=== PATIENT | male | born 1935 | race Caucasian/White ===

== ENCOUNTER 2018-10-25 09:23 | Inpatient (IN) | payer OTHER ==
[~2018-10-25] VITALS: Ht 172.7 cm; Wt 48.1 kg
[2018-10-25] MEDS ORDERED: AZILECT1 MG PO (09:37)
[2018-10-25 09:45] VITALS: BP 114/60
[2018-10-25 10:00] VITALS: BP 120/62
[2018-10-25 10:13] LABS: BASOPHILS 0.2 % (0-2); EOSINOPHILS 0.2 % (0-7); HEMATOCRIT 30.4 % (42.0-54.0); HEMOGLOBIN 9.9 g/dL (13.5-17.5); MCH 29.1 pg (26.0-34.0); MCHC 32.6 g/dL (31.0-37.0); MCV 89.4 fL (80.0-100.0); MEAN PLATELET VOLUME 9.2 fL (7.4-10.4); MONOCYTES 10.2 % (2-11); NEUTROPHILS 71.4 % (40-80); PLATELET COUNT 143 10x3/uL (130-400); RDW 14.5 % (11.5-14.5); WBC 5.1 10x3/uL (4.8-10.8)
[2018-10-25 10:31] LABS: ALBUMIN 2.6 g/dL (3.4-5.0); ALKALINE PHOSPHATASE 63 U/L (46-116); ALT (SGPT) 8 U/L (10-68); APPEARANCE CLEAR (CLEAR); BACTERIA FEW /hpf (NONE SEEN); BILIRUBIN NEGATIVE (NEGATIVE); BILIRUBIN - TOTAL 0.68 mg/dL (0.2-1.3); CALC OSMOLALITY 283 mosm/kg (275-300); CALCIUM 8.8 mg/dL (8.5-10.1); CARBON DIOXIDE 31.3 mmol/L (21.0-32.0); CHLORIDE - SERUM 105 mmol/L (98-107); COLOR DK YELLOW (YELLOW); CREATININE - SERUM 0.9 mg/dL (0.6-1.3); EPITHELIAL CELLS RARE /hpf (0-5); GLUCOSE 99 mg/dL (74-106); GLUCOSE NEGATIVE (NEGATIVE); KETONE SMALL mg/dL (NEGATIVE); MUCUS <1+ /lpf (NONE SEEN); NITRITE NEGATIVE (NEGATIVE); PROTEIN NEGATIVE (NEGATIVE); PROTEIN - SERUM 7.4 g/dL (6.4-8.2); RED CELLS - URINE OCC /hpf (0-5); SODIUM 142 mmol/L (136-145); SPECIFIC GRAVITY 1.015 (1.005-1.020); UREA NITROGEN 14 mg/dL (7-18); WHITE CELLS - URINE NSEEN /hpf (0-5); eGFR NON AFRICAN AMERICAN 85 mL/min (90-120)
--- NOTE | 2018-10-25 10:38 | NUR ---
PATIENT PRESENTS VIA [facility] SECONDARY TO FALL THIS MORNING AROUND 1 TO 2 AM - PT REPORTS RIGHT HIP PAIN - NO DEFORMITY NOTED ON ASSESSMENT. PT EX REPORTS PATIENT HAS HAD AN UNINTENTIONAL APPROX 10 LB WEIGHT LOSS OVER THE LAST MONTH - WITH INCREASING WEAKNESS AND HAS HAD "AT LEAST TWO OR THREE FALLS" NOT COUNTING THIS ONE. SHE REQUEST INFORMATION REGARDING HOME HEALTH OR CAREGIVING SERVICES - UNLOADER[employer]ANKIE SPOKE WITH PATIENT AND HIS EX REGARDING [employer] SERVICES. PT REMAINED ON THE FLOOR FOR APPROX 8 HOURS AFTER THIS FALL AND WAS UNABLE TO SUMMON HELP OR GET UP FROM FLOOR INDEPENDENTLY.
[2018-10-25 10:42] LABS: CKMB 0.6 U/L (0.0-3.6); CREATINE KINASE 103 UL (21-232)
[2018-10-25 10:44] LABS: TROPONIN-I < 0.017 ng/mL (0.000-0.060)
[2018-10-25 11:00] VITALS: BP 116/63
--- NOTE | 2018-10-25 11:49 | NUR ---
Admission order received at 1123, spoke to clay house worker, Connie @ 1124. Room 2219 given at 1126.
[2018-10-25 11:50] VITALS: BP 109/62
[2018-10-25 12:34] VITALS: BMI 16.1
--- NOTE | 2018-10-25 13:10 | MORECARE ---
CASE MANAGEMENT DISCHARGE SUMMARY PATIENT: DON MARQUEZ UNIT: [id number] ADM DATE: 10/25/18 AGE: 83 : 35 SEX: M ROOM/BED: D.2219 AUTHOR: MAYI ARELLANO PHYSICIAN: REFERRING PHYSICIAN: RACHID ABRAHAM MD DATE OF SERVICE: 10/25/18 Discharge Plan Patient Name: DON MARQUEZ [facility] [facility] 1935 Planned Disposition: Inpatient Rehab Facility Anticipated Discharge Date: 10/28/18 Discharge Date: Expected LOS: 3 Initial Reviewer: [email or web address] Initial Review Date: 10/25/2018 Generated: 10/25/18 2:09 pm DCPIA - Discharge Planning Initial Assessment Updated by [email or web address]: Gina Lacy on 10/25/18 1:08 pm * Is the patient Alert and Oriented? Yes * How many steps to enter\exit or inside your home? One * PCP Dr. Arpit Scott * Pharmacy [facility] * Preadmission Environment Home Alone * ADLs Partial Dependent * Partial ADLs (Assistance needed) Ambulation Bathing Dressing Transfers * Equipment Cane Rolling Walker * Other Equipment the walker and quad cane is borrowed equipment. * List name and contact numbers for known caregivers / representatives who currently or will assist patient after discharge: Jimena Marquez - ex - [phone] Monica Granados - daughter - * Verbal permission to speak to the caregivers and representatives has been obtained from the patient. Yes * Community resources currently utilized None * Additional services required to return to the preadmission environment? Yes * Can the patient safely return to the preadmission environment? No * Has this patient been hospitalized within the prior 30 days at any hospital? No Patient Name: DON MARQUEZ Page [id number] at 1310 All edits/amendments must be made on the electronic document DICTATION DATE: 10/25/18 1309 BOARDING HOUSE MANAGER: RAHUL 10/25/18 1309 RPT#: [id number] DC DATE: STATUS: ADM IN [facility] [address] [place] [address] END OF REPORT
--- NOTE | 2018-10-25 13:17 | MORECARE ---
CASE MANAGEMENT DISCHARGE SUMMARY PATIENT: DON MARQUEZ UNIT: [id number] ADM DATE: 10/25/18 AGE: 83 : 35 SEX: M ROOM/BED: D.2219 AUTHOR: MAYI ARELLANO PHYSICIAN: REFERRING PHYSICIAN: RACHID ABRAHAM MD DATE OF SERVICE: 10/25/18 Discharge Plan Patient Name: DON MARQUEZ Facility: [facility]:[place] : 1935 Planned Disposition: Inpatient Rehab Facility Anticipated Discharge Date: 10/28/18 Discharge Date: Expected LOS: 3 Initial Reviewer: [email or web address] Initial Review Date: 10/25/2018 Generated: 10/25/18 2:17 pm Comments DCP- Discharge Planning Updated by [email or web address]: Gina Lacy on 10/25/18 12:[address] Patient Name: DON MARQUEZ Admission Status: ER Accout number: [id number] Admission Date: 10-25-2018 : 1935 Admission Diagnosis: Attending: RACHID ABRAHAM Current LOS: 1 Anticipated DC Date: 10-28-2018 Planned Disposition: Inpatient Rehab Facility Primary Insurance: [employer] Discharge Planning Comments: DC PLAN: Rehab vs home health. ANTICIPATED DC NEEDS: KAYLEE signed for [facility] in the ER. CM met with patient and his ex , Jimena Marquez to complete initial dc planning assessment. CM educated them on the CM role and verbal consent given by patient's ex to complete assessment. CM verified patient's address, phone number, and emergency contact phone numbers. Patient lives at home alone. He was found down on the floor for an unknown amount of time. Jimena reports that the patient is very upset he is being admitted. She does not feel he is safe to be home alone. Their daughter Monica Granados will be here next week to assist in his care. Jimena had questions regarding home health and sitter services. Explained both and kaylee signed for [facility]. Jimena is not sure at discharge if the patient will agree to home health or rehab. She feels he will need rehab and is hopeful he will agree to it. She also had questions regarding how to get guardianship (so their daughter could do this when she gets here). Informed her that she would have to go through the courts to get guardianship. Referred her to [employer] for additional information. If the patient refuses services at me Jimena reports she will transport him home. Cm will make arrangements once plan for the hip fracture is know. Not sure at this time if surgery will be required per ER MD. CM will continue to follow and will assist as needed with dc plans/needs. China Painter: Gina Lacy RN, [facility] DCPIA - Discharge Planning Initial Assessment Updated by [email or web address]: Gina Lacy on 10/25/18 1:08 pm * Is the patient Alert and Oriented? Yes * How many steps to enter\exit or inside your home? One * PCP Dr. Arpit Scott * Pharmacy [facility] near [facility] * Preadmission Environment Home Alone * ADLs Partial Dependent * Partial ADLs (Assistance needed) Ambulation Bathing Dressing Transfers * Equipment Cane Rolling Walker * Other Equipment the walker and quad cane is borrowed equipment. * List name and contact numbers for known caregivers / representatives who currently or will assist patient after discharge: Jimena Marquez - ex - [phone] Monica Granados - daughter - * Verbal permission to speak to the caregivers and representatives has been obtained from the patient. Yes * Community resources currently utilized None * Additional services required to return to the preadmission environment? Yes * Can the patient safely return to the preadmission environment? No * Has this patient been hospitalized within the prior 30 days at any hospital? No Last DP export: 10/25/18 12:10 p Patient Name: DON MARQUEZ Page [id number] at 1317 All edits/amendments must be made on the electronic document DICTATION DATE: 10/25/187 EMT/DISPATCHER: RAHUL 10/25/187 RPT#: [id number] DC DATE: STATUS: ADM IN [facility] [address] [place] [address] END OF REPORT
[2018-10-25 16:23] LABS: CKMB 0.7 U/L (0.0-3.6); CREATINE KINASE 132 UL (21-232)
[2018-10-25 16:25] LABS: TROPONIN-I < 0.017 ng/mL (0.000-0.060)
--- NOTE | 2018-10-25 18:45 | NUR ---
PATIENT IN BED WITH NO COMPLAINTS. IV OUT. PATIENT REMOVED EARLIER WITH CATH TIP INTACT. CALL LIGHT WITHIN REACH.
--- NOTE | 2018-10-25 19:00 | NUR ---
ASSESSMENT PER FLOW SHEET. PT IS WITHOUT DISTRESS.FALL PREVENTION INITIATED WITH CAMRYN MAT.DOOR OPEN TO MONITOR.
[2018-10-25 22:24] VITALS: BP 114/74
[2018-10-25 22:46] LABS: CKMB 0.7 U/L (0.0-3.6); CREATINE KINASE 111 UL (21-232); TROPONIN-I < 0.017 ng/mL (0.000-0.060)
[2018-10-26 03:48] VITALS: BP 112/63
--- NOTE | 2018-10-26 06:03 | NUR ---
HAS SLEPT VERY LITTLE DURING NIGHT. PT HAS BEEN TRYING TO GET OUT OF BED. DOOR HAS BEEN OPEN TO MONITOR. PT IS WITHOUT CHANGE. CONT PLAN OF CARE
[2018-10-26 06:49] VITALS: BP 125/66
[2018-10-26 07:31] LABS: BASOPHILS 0.4 % (0-2); EOSINOPHILS 1.6 % (0-7); HEMATOCRIT 34.6 % (42.0-54.0); HEMOGLOBIN 10.9 g/dL (13.5-17.5); IMMATURE GRANULOCYTES 0.2 % (0-5); LYMPHOCYTES 18.4 % (15-50); MCH 29.4 pg (26.0-34.0); MCHC 31.5 g/dL (31.0-37.0); MONOCYTES 8.4 % (2-11); PLATELET COUNT 157 10x3/uL (130-400); RBC 3.71 10x6/uL (4.20-6.10); RDW 14.5 % (11.5-14.5); WBC 5.1 10x3/uL (4.8-10.8)
[2018-10-26 07:33] LABS: MCV 93.3 fL (80.0-100.0)
[2018-10-26 07:43] LABS: CALC OSMOLALITY 279 mosm/kg (275-300); CALCIUM 8.4 mg/dL (8.5-10.1); CARBON DIOXIDE 25.5 mmol/L (21.0-32.0); CHLORIDE - SERUM 106 mmol/L (98-107); CREATININE - SERUM 0.7 mg/dL (0.6-1.3); GLUCOSE 92 mg/dL (74-106); MAGNESIUM - SERUM 1.8 mg/dL (1.8-2.4); POTASSIUM - SERUM 4.1 mmol/L (3.5-5.1); SODIUM 141 mmol/L (136-145); UREA NITROGEN 11 mg/dL (7-18); eGFR NON AFRICAN AMERICAN > 90 mL/min (90-120)
--- NOTE | 2018-10-26 09:00 | NUR ---
PATIENT IS VERY CONFUSED. CLIMBING OUT OF BED. BED ALARM ON. CALL LIGHT WITHIN REACH. PULLED OFF TELEMETRY X2 SINCE SHIFT STARTED. THIS NURSE CALLED WORKERS [employer] WHO STATED THAT PATIENT HAS BEEN RUNNING SINUE RYTHUM WHEN TELELMTRY ON. KEPT TELEMTRY OFF AND TURNED IN UNIT TO TECH. DAUGHTER WHO LIVES IN [place] CALLED AND UPDATED AFTER PATIENT STATED IT WAS OK TO TALK TO DAUGHTER
[2018-10-26 10:17] VITALS: BP 105/54
[2018-10-26 13:11] VITALS: BP 118/63
[2018-10-26 13:28] LABS: % SATURATION 18 % (15-55); IRON 27 ug/dl (35-150); TOTAL IRON BIND CAPACITY 150 ug/dl (260-445); UNSAT IRON BIND CAPACITY 123 ug/dl (150-375)
[2018-10-26 13:43] VITALS: Ht 172.7 cm; Wt 48.1 kg
--- NOTE | 2018-10-26 14:54 | NUR ---
WOUND CARE CONSULT : REASON FOR CONSULT: DECREASED MOBILITY -TURN/REPOSITION PT EVERYY 2 HOURS -IF UP IN CHAIR SHIFT POSITIONS HOURLY -CALMOSEPTINE CREAM FOR ANY REDNESS RELATED TO INCONTINENCE -BRIDGE HEELS WHILE IN BED
--- NOTE | 2018-10-26 15:43 | MORECARE ---
CASE MANAGEMENT DISCHARGE SUMMARY PATIENT: DON MARQUEZ UNIT: [id number] ADM DATE: 10/25/18 AGE: 83 : 35 SEX: M ROOM/BED: D.2219 AUTHOR: MAYI ARELLANO PHYSICIAN: REFERRING PHYSICIAN: RACHID ABRAHAM MD DATE OF SERVICE: 10/26/18 Discharge Plan Patient Name: DON MARQUEZ Facility: [facility]:[place] : 1935 Planned Disposition: Inpatient Rehab Facility Anticipated Discharge Date: 10/28/18 Discharge Date: Expected LOS: 3 Initial Reviewer: [email or web address] Initial Review Date: 10/25/2018 Generated: 10/26/18 4:43 pm DCP- Discharge Planning Updated by [email or web address]: Jillian Lovett on 10/26/18 2:[address] met with ex Jimena and met with patient, Jimena stated that she and her daughter are the POA. The patient is alert but not oriented to anything. He is pleasant but cannot answer any questions appropriately. Psych consult ordered will wait to see his recommendations, CM to follow and assist as needed DCP- Discharge Planning Updated by [email or web address]: Gina Lacy on 10/25/18 12:[address] Patient Name: DON MARQUEZ Admission Status: ER Accout number: [id number] Admission Date: 10-25-2018 : 1935 Admission Diagnosis: Attending: RACHID ABRAHAM Current LOS: 1 Anticipated DC Date: 10-28-2018 Planned Disposition: Inpatient Rehab Facility Primary Insurance: [employer] Discharge Planning Comments: DC PLAN: Rehab vs home health. ANTICIPATED DC NEEDS: KAYLEE signed for [facility] in the ER. CM met with patient and his ex , Jimena Marquez to complete initial dc planning assessment. CM educated them on the CM role and verbal consent given by patient's ex to complete assessment. CM verified patient's address, phone number, and emergency contact phone numbers. Patient lives at home alone. He was found down on the floor for an unknown amount of time. Jimena reports that the patient is very upset he is being admitted. She does not feel he is safe to be home alone. Their daughter Monica Granados will be here next week to assist in his care. Jimena had questions regarding home health and sitter services. Explained both and kaylee signed for [facility] . Jimena is not sure at discharge if the patient will agree to home health or rehab. She feels he will need rehab and is hopeful he will agree to it. She also had questions regarding how to get guardianship (so their daughter could do this when she gets here). Informed her that she would have to go through the courts to get guardianship. Referred her to [employer] for additional information. If the patient refuses services at dc Jimena reports she will transport him home. Cm will make arrangements once plan for the hip fracture is know. Not sure at this time if surgery will be required per ER MD. CM will continue to follow and will assist as needed with dc plans/needs. Water Resources Technical Officer: Gina Lacy RN, [facility] DCPIA - Discharge Planning Initial Assessment Updated by [email or web address]: Gina Lacy on 10/25/18 1:08 pm * Is the patient Alert and Oriented? Yes * How many steps to enter\exit or inside your home? One * PCP Dr. Arpit Scott * Pharmacy [facility] near [facility] * Preadmission Environment Home Alone * ADLs Partial Dependent * Partial ADLs (Assistance needed) Ambulation Bathing Dressing Transfers * Equipment Cane Rolling Walker * Other Equipment the walker and quad cane is borrowed equipment. * List name and contact numbers for known caregivers / representatives who currently or will assist patient after discharge: Jimena Marquez - ex - [phone] Monica Granados - daughter - * Verbal permission to speak to the caregivers and representatives has been obtained from the patient. Yes * Community resources currently utilized None * Additional services required to return to the preadmission environment? Yes * Can the patient safely return to the preadmission environment? No * Has this patient been hospitalized within the prior 30 days at any hospital? No Last DP export: 10/25/18 12:17 p Patient Name: DON MARQUEZ Page [id number] at 1543 All edits/amendments must be made on the electronic document DICTATION DATE: 10/26/18 1546 AD OPERATIONS SPECIALIST: RAHUL 10/26/18 1541 RPT#: [id number] ID DATE: STATUS: ADM IN [facility] [address] [place] [address] END OF REPORT
--- NOTE | 2018-10-26 20:22 | NUR ---
AWAKE,ALERT WITH CONFUSION NOTED. ORIENTED TO SELF ONLY. RESP UNLABORED. NO DISTRESS NOTED. PATIENT REMAINS IN CAMRYN BED FOR SAFTEY.
[2018-10-26 21:49] VITALS: BP 147/78
--- NOTE | 2018-10-27 00:17 | NUR ---
SLEEPING NOW,WITHOUT DISTRESS.DOOR OPEN TO MONITOR
[2018-10-27 02:49] VITALS: BP 144/72
[2018-10-27 04:47] LABS: BASOPHILS 0.6 % (0-2); EOSINOPHILS 1.7 % (0-7); HEMATOCRIT 33.9 % (42.0-54.0); HEMOGLOBIN 11.4 g/dL (13.5-17.5); IMMATURE GRANULOCYTES 0.2 % (0-5); LYMPHOCYTES 17.3 % (15-50); MCH 29.5 pg (26.0-34.0); MCHC 33.6 g/dL (31.0-37.0); MEAN PLATELET VOLUME 9.7 fL (7.4-10.4); MONOCYTES 8.7 % (2-11); NEUTROPHILS 71.5 % (40-80); RBC 3.87 10x6/uL (4.20-6.10); WBC 5.4 10x3/uL (4.8-10.8)
[2018-10-27 04:58] LABS: MCV 87.6 fL (80.0-100.0); PLATELET COUNT 191 10x3/uL (130-400)
[2018-10-27 05:18] LABS: CALC OSMOLALITY 277 mosm/kg (275-300); CALCIUM 8.9 mg/dL (8.5-10.1); CARBON DIOXIDE 27.5 mmol/L (21.0-32.0); CHLORIDE - SERUM 103 mmol/L (98-107); CREATININE - SERUM 0.8 mg/dL (0.6-1.3); GLUCOSE 91 mg/dL (74-106); PHOSPHOROUS 3.2 mg/dL (2.5-4.9); POTASSIUM - SERUM 4.1 mmol/L (3.5-5.1); SODIUM 140 mmol/L (136-145); UREA NITROGEN 10 mg/dL (7-18); eGFR NON AFRICAN AMERICAN > 90 mL/min (90-120)
[2018-10-27 06:29] VITALS: BP 118/70
--- NOTE | 2018-10-27 07:55 | NUR ---
PT RESTING IN BED. AROUSED BY VERBAL STIMULI. NO S/S OF ACUTE DISTRESS. CL IN PLACE.
[2018-10-27 10:26] VITALS: BP 125/63
--- NOTE | 2018-10-27 12:51 | NUR ---
Calorie Count for Wednesday 14: kcal protein Breakfasat 160 10 Lunch 250 16 Dinner 350 20 Total 760 kcal 46 gm protien RDN following.
--- NOTE | 2018-10-27 13:07 | MORECARE ---
CASE MANAGEMENT DISCHARGE SUMMARY PATIENT: DON MARQUEZ UNIT: [id number] ADM DATE: 10/25/18 AGE: 83 : 35 SEX: M ROOM/BED: D.2219 AUTHOR: MAYI ARELLANO PHYSICIAN: REFERRING PHYSICIAN: RACHID ABRAHAM MD DATE OF SERVICE: 10/27/18 Discharge Plan Patient Name: DON MARQUEZ Facility: [facility]:[place] : 1935 Planned Disposition: Inpatient Rehab Facility Anticipated Discharge Date: 10/28/18 Discharge Date: Expected LOS: 3 Initial Reviewer: [email or web address] Initial Review Date: 10/25/2018 Generated: 10/27/18 2:07 pm Comments DCP- Discharge Planning Updated by [email or web address]: Jillian Lovett on 10/27/18 11:[address] spoke with ex today, she was up here visiting him about and a facility. I [place] broch[place]. She stated that she is going to talk with their daughter and go visit them and get back with me. CM will continue to follow and assist with dc planning DCP- Discharge Planning Updated by [email or web address]: Jillian Lovett on 10/26/18 2:[address] met with ex Jimena and met with patient, Jimena stated that she and her daughter are the POA. The patient is alert but not oriented to anything. He is pleasant but cannot answer any questions appropriately. Psych consult ordered will wait to see his recommendations, CM to follow and assist as needed DCP- Discharge Planning Updated by [email or web address]: Gina Lacy on 10/25/18 12:[address] Patient Name: DON MARQUEZ Admission Status: ER Accout number: [id number] Admission Date: 10-25-2018 : 1935 Admission Diagnosis: Attending: RACHID ABRAHAM Current LOS: 1 Anticipated DC Date: 10-28-2018 Planned Disposition: Inpatient Rehab Facility Primary Insurance: [employer] Discharge Planning Comments: DC PLAN: Rehab vs home health. ANTICIPATED DC NEEDS: KAYLEE signed for [facility] in the ER. CM met with patient and his ex , Jimena Marquez to complete initial dc planning assessment. CM educated them on the CM role and verbal consent given by patient's ex to complete assessment. CM verified patient's address, phone number, and emergency contact phone numbers. Patient lives at home alone. He was found down on the floor for an unknown amount of time. Jimena reports that the patient is very upset he is being admitted. She does not feel he is safe to be home alone. Their daughter Monica Granados will be here next week to assist in his care. Jimena had questions regarding home health and sitter services. Explained both and kaylee signed for [facility]. Jimena is not sure at discharge if the patient will agree to home health or rehab. She feels he will need rehab and is hopeful he will agree to it. She also had questions regarding how to get guardianship (so their daughter could do this when she gets here). Informed her that she would have to go through the courts to get guardianship. Referred her to [employer] for additional information. If the patient refuses services at dc Jimena reports she will transport him home. Cm will make arrangements once plan for the hip fracture is know. Not sure at this time if surgery will be required per ER MD. CM will continue to follow and will assist as needed with dc plans/needs. Snuff Maker: Gina Lacy RN, [facility] DCPIA - Discharge Planning Initial Assessment Updated by [email or web address]: Gina Lacy on 10/25/18 1:08 pm * Is the patient Alert and Oriented? Yes * How many steps to enter\exit or inside your home? One * PCP Dr. Arpit Scott * Pharmacy [facility] near [facility] * Preadmission Environment Home Alone * ADLs Partial Dependent * Partial ADLs (Assistance needed) Ambulation Bathing Dressing Transfers * Equipment Cane Rolling Walker * Other Equipment the walker and quad cane is borrowed equipment. * List name and contact numbers for known caregivers / representatives who currently or will assist patient after discharge: Jimena Marquez - ex - [phone] Monica Granados - daughter - * Verbal permission to speak to the caregivers and representatives has been obtained from the patient. Yes * Community resources currently utilized None * Additional services required to return to the preadmission environment? Yes * Can the patient safely return to the preadmission environment? No * Has this patient been hospitalized within the prior 30 days at any hospital? No Last DP export: 10/26/18 2:43 p Patient Name: DON MARQUEZ Page [id number] at 1307 All edits/amendments must be made on the electronic document DICTATION DATE: 10/27/18 1307 SENIOR QUALITY CONTROL INSPECTOR: RAHUL 10/27/18 1307 RPT#: [id number] DC DATE: STATUS: ADM IN [facility] [address] [place] [address] END OF REPORT
--- NOTE | 2018-10-27 13:17 | CN ---
PATIENT NAME:DON MARQUEZ MEDICAL RECORD: [id number] : [birth year] LOCATION:D.MS Amin2219 ADMIT DATE: 10/25/18 ACCOUNT: [id number] CONSULTING PHYSICIAN: SRI LOPEZ MD REFERRING PHYSICIAN: RACHID ABRAHAM MD DATE OF CONSULTATION: 10/26/2018 IDENTIFYING DATA: The patient is 83 years old and he is admitted to the hospital secondary to a hip fracture. CHIEF COMPLAINT: None. HISTORY OF PRESENT ILLNESS: The patient is a very nice man who unfortunately is significantly and seriously impaired. He lives alone in [place]. Apparently, he was found on the floor. He cannot give much history. It is really not known how long he has been there. He looks emaciated. He has a number of medical problems and is confused. He denies that he would seek to harm himself or others. He denies psychotic symptoms. MENTAL STATUS EXAMINATION: The patient is awake; alert; and oriented to person, place, and minimally to time and situation. His mood is euthymic. His affect is generally appropriate. Thought processes are disorganized. His memory, concentration, and abstraction abilities are impaired. He denies that he would seek to harm himself or others along with psychotic symptoms. ASSESSMENT: Parkinson's related dementia. PLAN: The patient is suffering from a moderately advanced dementia and is inappropriate to live alone. He does not abuse drugs or alcohol, but he is too impaired to be living independently. Helping him transition from home into an environment that is the least restrictive to meet his needs is certainly something that we do on the behavioral unit. Unfortunately, the need for supervision and placement is not admission criteria. There is no evidence of aggressive psychotic behavior. There is no evidence of acute danger to himself other than the fact that he needs supervision, which is in and of itself an exclusionary criteria for behavioral hospitalization. I am not allowed to hospitalize somebody for the purposes of placement or for diagnostic procedures or purposes. It is my opinion that he is not fully competent to make reasonable informed consent decisions about himself or his state and that he is in need of placement. I see no reason for significant pharmacologic interventions, but would recommend starting him on Aricept at a dose of 10 mg at bedtime. In fact, I will do so now. TRANSINT:[id number] Voice Confirmation ID: [id number] DOCUMENT ID: [id number] SRI LOPEZ MD at 1317 CC: [id number] DICTATION DATE: 10/26/18 1510 HORSE TRAINER: 10/26/18 1618 ADM IN [place] [id number] [place] [id number]
[2018-10-27 18:35] VITALS: BP 131/85
--- NOTE | 2018-10-27 18:49 | NUR ---
PT RESTING IN BED. NO S/S OF ACUTE DISTRESS. CL IN PLACE.
--- NOTE | 2018-10-27 19:00 | NUR ---
REPORT RECEICED AND CARE OF PT ASSUMED. PT LYING IN LOW HAN'S POSITION IN ENCLOSURE BED. HE HAS TAKEN GOWN OFF AND IS LAYING NAKED UNCOVERED. NO IV SITED. WILL MONITOR FOR NEEDS.
--- NOTE | 2018-10-27 20:39 | NUR ---
HS MEDICATIONS GIVEN WITH APPLESAUCE. PT RE-POSITIONED, GAVE WATER, AND COVERED UP FOR COMFORT. PT REMAINS IN ENCLOSURE BED FOR SAFETY.
[2018-10-27 20:42] VITALS: BP 137/62
--- NOTE | 2018-10-28 00:03 | NUR ---
ALL BEDDING AND PADS CHANGED DUE TO INCONTINENCE. POSITIONED FOR COMFORT AND GAVE PUDDING SNACK.
[2018-10-28 05:12] LABS: BASOPHILS 0.2 % (0-2); EOSINOPHILS 0.3 % (0-7); HEMATOCRIT 35.7 % (42.0-54.0); LYMPHOCYTES 13.7 % (15-50); MCH 29.6 pg (26.0-34.0); MCHC 33.6 g/dL (31.0-37.0); MCV 87.9 fL (80.0-100.0); MEAN PLATELET VOLUME 9.5 fL (7.4-10.4); MONOCYTES 8.1 % (2-11); NEUTROPHILS 77.7 % (40-80); PLATELET COUNT 218 10x3/uL (130-400); RBC 4.06 10x6/uL (4.20-6.10); RDW 13.9 % (11.5-14.5); WBC 5.9 10x3/uL (4.8-10.8)
[2018-10-28 05:30] LABS: CALC OSMOLALITY 273 mosm/kg (275-300); CARBON DIOXIDE 26.8 mmol/L (21.0-32.0); CHLORIDE - SERUM 102 mmol/L (98-107); CREATININE - SERUM 0.8 mg/dL (0.6-1.3); GLUCOSE 88 mg/dL (74-106); MAGNESIUM - SERUM 1.9 mg/dL (1.8-2.4); PHOSPHOROUS 3.2 mg/dL (2.5-4.9); POTASSIUM - SERUM 4.1 mmol/L (3.5-5.1); SODIUM 138 mmol/L (136-145); UREA NITROGEN 11 mg/dL (7-18); eGFR NON AFRICAN AMERICAN > 90 mL/min (90-120)
[2018-10-28 07:30] VITALS: BP 110/63
[2018-10-28 11:30] VITALS: BP 116/55
--- NOTE | 2018-10-28 13:00 | MORECARE ---
CASE MANAGEMENT DISCHARGE SUMMARY PATIENT: DON MARQUEZ UNIT: [id number] ADM DATE: 10/25/18 AGE: 83 : 35 SEX: M ROOM/BED: D.2219 AUTHOR: MAYI ARELLANO PHYSICIAN: REFERRING PHYSICIAN: RACHID ABRAHAM MD DATE OF SERVICE: 10/28/18 Discharge Plan Patient Name: DON MARQUEZ Facility: [facility]:[place] : 1935 Planned Disposition: Inpatient Rehab Facility Anticipated Discharge Date: 10/28/18 Discharge Date: Expected LOS: 3 Initial Reviewer: [email or web address] Initial Review Date: 10/25/2018 Generated: 10/28/18 1:59 pm Comments DCP- Discharge Planning Updated by [id number]: Jillian Lovett on 10/27/18 11:[address] spoke with ex today, she was up here visiting him about and a facility. [place] She stated that she is going to talk with their daughter and go visit them and get back with me. CM will continue to follow and assist with dc planning DCP- Discharge Planning Updated by [email or web address]: Jillian Lovett on 10/26/18 2:[address] met with ex Jimena and met with patient, Jimena stated that she and her daughter are the POA. The patient is alert but not oriented to anything. He is pleasant but cannot answer any questions appropriately. Psych consult ordered will wait to see his recommendations, CM to follow and assist as needed DCP- Discharge Planning Updated by [id number]: Gina Lacy on 10/25/18 12:[address] Patient Name: DON MARQUEZ Admission Status: ER Accout number: [id number] Admission Date: 10-25-2018 : 1935 Admission Diagnosis: Attending: RACHID ABRAHAM Current LOS: 1 Anticipated DC Date: 10-28-2018 Planned Disposition: Inpatient Rehab Facility Primary Insurance: [id number] Discharge Planning Comments: DC PLAN: Rehab vs home health. ANTICIPATED DC NEEDS: KAYLEE signed for [facility] in the ER. CM met with patient and his ex , Jimena Marquez to complete initial dc planning assessment. CM educated them on the CM role and verbal consent given by patient's ex to complete assessment. CM verified patient's address, phone number, and emergency contact phone numbers. Patient lives at home alone. He was found down on the floor for an unknown amount of time. Jimena reports that the patient is very upset he is being admitted. She does not feel he is safe to be home alone. Their daughter Monica Granados will be here next week to assist in his care. Jimena had questions regarding home health and sitter services. Explained both and kaylee signed for [facility]. Jimena is not sure at discharge if the patient will agree to home health or rehab. She feels he will need rehab and is hopeful he will agree to it. She also had questions regarding how to get guardianship (so their daughter could do this when she gets here). Informed her that she would have to go through the courts to get guardianship. Referred her to [employer] for additional information. If the patient refuses services at dc Jimena reports she will transport him home. Cm will make arrangements once plan for the hip fracture is know. Not sure at this time if surgery will be required per ER MD. CM will continue to follow and will assist as needed with dc plans/needs. Fleet Operations Manager: Gina Lacy RN, [facility] DCPIA - Discharge Planning Initial Assessment Updated by [email or web address]: Gina Lacy on 10/25/18 1:08 pm * Is the patient Alert and Oriented? Yes * How many steps to enter\exit or inside your home? One * PCP Dr. Arpit Scott * Pharmacy [facility] near [facility] * Preadmission Environment Home Alone * ADLs Partial Dependent * Partial ADLs (Assistance needed) Ambulation Bathing Dressing Transfers * Equipment Cane Rolling Walker * Other Equipment the walker and quad cane is borrowed equipment. * List name and contact numbers for known caregivers / representatives who currently or will assist patient after discharge: Jimena Marquez - ex - [phone] Monica Granados - daughter - * Verbal permission to speak to the caregivers and representatives has been obtained from the patient. Yes * Community resources currently utilized None * Additional services required to return to the preadmission environment? Yes * Can the patient safely return to the preadmission environment? No * Has this patient been hospitalized within the prior 30 days at any hospital? No External Providers [facility] Next Contact Date: Service Request Date: Service Type: Resolution: Reviewer: Comments: [facility] Contact Date: Service Request Date: Service Type: Resolution: Reviewer: Comments: Last DP export: 10/27/18 12:07 p Patient Name: DON MARQUEZ Page 37002 at 1300 All edits/amendments must be made on the electronic document DICTATION DATE: 10/28/18 125 HYDRAULIC ENGINEER: RAHUL 10/28/18 125 RPT#: [id number] DC DATE: STATUS: ADM IN [facility] [address] [place] [address] END OF REPORT
--- NOTE | 2018-10-28 13:34 | MORECARE ---
CASE MANAGEMENT DISCHARGE SUMMARY PATIENT: DON MARQUEZ UNIT: [id number] ADM DATE: 10/25/18 AGE: 83 : 35 SEX: M ROOM/BED: D.2219 AUTHOR: MAYI ARELLANO PHYSICIAN: REFERRING PHYSICIAN: RACHID CORDOVA MD DATE OF SERVICE: 10/28/18 Discharge Plan Patient Name: DON MARQUEZ [facility] [facility] 1935 Planned Disposition: Inpatient Rehab Facility Anticipated Discharge Date: 10/28/18 Discharge Date: Expected LOS: 3 Initial Reviewer: [email or web address] Initial Review Date: 10/25/2018 Generated: 10/28/18 2:33 pm Comments DCP- Discharge Planning Updated by [email or web address]: Jillian Lovett on 10/28/18 12:[address] Spoke at length with Daughter, she would like a referral to be sent to [facility]. Dr Cordova spoke with family at length about prognosis and plan of care. CM to follow and assist DCP- Discharge Planning Updated by [email or web address]: Jillian Lovett on 10/27/18 11:[address] spoke with ex today, she was up here visiting him about and a facility. I have given her brochures and information about the ones in the [facility] and surrounding area's. She stated that she is going to talk with their daughter and go visit them and get back with me. CM will continue to follow and assist with dc planning DCP- Discharge Planning Updated by [email or web address]: Jillian Lovett on 10/26/18 2:[address] met with ex Jimena and met with patient, Jimena stated that she and her daughter are the POA. The patient is alert but not oriented to anything. He is pleasant but cannot answer any questions appropriately. Psych consult ordered will wait to see his recommendations, CM to follow and assist as needed DCP- Discharge Planning Updated by [id number]: Gina Lacy on 10/25/18 12:[address] Patient Name: DON MARQUEZ Admission Status: ER Accout number: [id number] Admission Date: 10-25-2018 : 1935 Admission Diagnosis: Attending: RACHID CORDOVA Current LOS: 1 Anticipated DC Date: 10-28-2018 Planned Disposition: Inpatient Rehab Facility Primary Insurance: [employer] Discharge Planning Comments: DC PLAN: Rehab vs home health. ANTICIPATED DC NEEDS: KAYLEE signed for [facility] in the ER. CM met with patient and his ex , Jimena Marquez to complete initial dc planning assessment. CM educated them on the CM role and verbal consent given by patient's ex to complete assessment. CM verified patient's address, phone number, and emergency contact phone numbers. Patient lives at home alone. He was found down on the floor for an unknown amount of time. Jimena reports that the patient is very upset he is being admitted. She does not feel he is safe to be home alone. Their daughter Monica Granados will be here next week to assist in his care. Jimena had questions regarding home health and sitter services. Explained both and kaylee signed for [facility]. Jimena is not sure at discharge if the patient will agree to home health or rehab. She feels he will need rehab and is hopeful he will agree to it. She also had questions regarding how to get guardianship (so their daughter could do this when she gets here). Informed her that she would have to go through the courts to get guardianship. Referred her to [employer] for additional information. If the patient refuses services at md Jimena reports she will transport him home. Cm will make arrangements once plan for the hip fracture is know. Not sure at this time if surgery will be required per ER MD. CM will continue to follow and will assist as needed with dc plans/needs. Latex Thread Machine Operator: Gina Lacy RN, [facility] DCPIA - Discharge Planning Initial Assessment Updated by [id number]: Gina Lacy on 10/25/18 1:08 pm * Is the patient Alert and Oriented? Yes * How many steps to enter\exit or inside your home? One * PCP Dr. Arpit Scott * Pharmacy [facility] near [facility] * Preadmission Environment Home Alone * ADLs Partial Dependent * Partial ADLs (Assistance needed) Ambulation Bathing Dressing Transfers * Equipment Cane Rolling Walker * Other Equipment the walker and quad cane is borrowed equipment. * List name and contact numbers for known caregivers / representatives who currently or will assist patient after discharge: Jimena Marquez - ex - [phone] Monica Granados - daughter - * Verbal permission to speak to the caregivers and representatives has been obtained from the patient. Yes * Community resources currently utilized None * Additional services required to return to the preadmission environment? Yes * Can the patient safely return to the preadmission environment? No * Has this patient been hospitalized within the prior 30 days at any hospital? No Last DP export: 10/28/18 12:00 p Patient Name: DON MARQUEZ Page [id number] at 1334 All edits/amendments must be made on the electronic document DICTATION DATE: 10/28/181332 DRY BOSS: RAHUL 10/28/183 RPT#: [id number] DC DATE: STATUS: ADM IN [facility] [address] [place] [address] END OF REPORT
--- NOTE | 2018-10-28 15:44 | MORECARE ---
CASE MANAGEMENT DISCHARGE SUMMARY PATIENT: DON MARQUEZ UNIT: [id number] ADM DATE: 10/25/18 AGE: 83 : 35 SEX: M ROOM/BED: D.2219 AUTHOR: EILEENDOC PHYSICIAN: REFERRING PHYSICIAN: RACHID CORDOVA MD DATE OF SERVICE: 10/28/18 Discharge Plan Patient Name: DON MARQUEZ [facility] [facility] 1935 Planned Disposition: Inpatient Rehab Facility Anticipated Discharge Date: 10/28/18 Discharge Date: Expected LOS: 3 Initial Reviewer: [id number] Initial Review Date: 10/25/2018 Generated: 10/28/18 4:44 pm Comments DCP- Discharge Planning Updated by [email or web address]: Jillian Lovett on 10/28/18 2:[address] I ALSO FAXED DOWN A COPY OF THE PATIENTS CARD TO THE BUSINESS OFFICE AND THEY HAVE UPDATED HIS FACESHEET DCP- Discharge Planning Updated by [email or web address]: Jillian Lovett on 10/28/18 2:[address] [facility], I SPOKE WITH JEFF. DCP- Discharge Planning Updated by [id number]: Jillian Lovett on 10/28/18 12:[address] Spoke at length with Daughter, she would like a referral to be sent to [facility]. Dr Cordova spoke with family at length about prognosis and plan of care. CM to follow and assist DCP- Discharge Planning Updated by [id number]: Jillian Lovett on 10/27/18 11:[address] spoke with ex today, she was up here visiting him about and a facility. I have given her brochures and information about the ones in the [facility] and surrounding area's. She stated that she is going to talk with their daughter and go visit them and get back with me. CM will continue to follow and assist with dc planning DCP- Discharge Planning Updated by [id number]: Jillian Lovett on 10/26/18 2:[address] met with ex Jimena and met with patient, Jimena stated that she and her daughter are the POA. The patient is alert but not oriented to anything. He is pleasant but cannot answer any questions appropriately. Psych consult ordered will wait to see his recommendations, CM to follow and assist as needed DCP- Discharge Planning Updated by [id number]: Gina Lacy on 10/25/18 12:[address] Patient Name: DON MARQUEZ Admission Status: ER Accout number: [id number] Admission Date: 10-25-2018 : 1935 Admission Diagnosis: Attending: RACHID CORDOVA Current LOS: 1 Anticipated DC Date: 10-28-2018 Planned Disposition: Inpatient Rehab Facility Primary Insurance: [employer] Discharge Planning Comments: DC PLAN: Rehab vs home health. ANTICIPATED DC NEEDS: KAYLEE signed for [facility] in the ER. CM met with patient and his ex , Jimena Marquez to complete initial dc planning assessment. CM educated them on the CM role and verbal consent given by patient's ex to complete assessment. CM verified patient's address, phone number, and emergency contact phone numbers. Patient lives at home alone. He was found down on the floor for an unknown amount of time. Jimena reports that the patient is very upset he is being admitted. She does not feel he is safe to be home alone. Their daughter Monica Granados will be here next week to assist in his care. Jimena had questions regarding home health and sitter services. Explained both and kaylee signed for [facility]. Jimena is not sure at discharge if the patient will agree to home health or rehab. She feels he will need rehab and is hopeful he will agree to it. She also had questions regarding how to get guardianship (so their daughter could do this when she gets here). Informed her that she would have to go through the courts to get guardianship. Referred her to [employer] for additional information. If the patient refuses services at [place] Jimena reports she will transport him home. Cm will make arrangements once plan for the hip fracture is know. Not sure at this time if surgery will be required per ER MD. CM will continue to follow and will assist as needed with dc plans/needs. Film Writer: Gina Lacy RN, [facility] DCPIA - Discharge Planning Initial Assessment Updated by [id number]: Gina Lacy on 10/25/18 1:08 pm * Is the patient Alert and Oriented? Yes * How many steps to enter\exit or inside your home? One * PCP Dr. Arpit Scott * Pharmacy [facility] near [facility] * Preadmission Environment Home Alone * ADLs Partial Dependent * Partial ADLs (Assistance needed) Ambulation Bathing Dressing Transfers * Equipment Cane Rolling Walker * Other Equipment the walker and quad cane is borrowed equipment. * List name and contact numbers for known caregivers / representatives who currently or will assist patient after discharge: Jimena Marquez - ex - [phone] Monica Granados - daughter - * Verbal permission to speak to the caregivers and representatives has been obtained from the patient. Yes * Community resources currently utilized None * Additional services required to return to the preadmission environment? Yes * Can the patient safely return to the preadmission environment? No * Has this patient been hospitalized within the prior 30 days at any hospital? No Coverage Notice Reviewer: [email or web address] Erica Lovett Notice Issued Date-Time: 10/28/2018 12:00 Notice Type: Patient Choice Letter Notice Delivered To: Family Member Relationship to Patient: Daughter Calender Let Off Helper Name: Delivery Method: HAND - Hand Delivered Liza Days: Prior Verbal Notification: Recipient Understood Notice: Yes Recipient Signature: Yes Med Rec Note Co-signed by Attending: Coverage Notice Comment: KAYLEE FOR SKILLED Last DP export: 10/28/18 12:34 p Patient Name: DON MARQUEZ Page 12120 at 1544 All edits/amendments must be made on the electronic document DICTATION DATE: 10/28/18 1543 ROLLS BAKER: RAHUL 10/28/18 1543 RPT#: [id number] DC DATE: STATUS: ADM IN [facility] [address] [place] [address] END OF REPORT
[2018-10-28 15:45] VITALS: BP 120/54
--- NOTE | 2018-10-28 16:34 | NUR ---
SWALLOW STUDY COMPLETED. ST STATED PATIENT ASPIRATING ON EVERYTHING.
[2018-10-28 16:41] VITALS: BP 120/54
[2018-10-28 21:25] VITALS: BP 86/56
[2018-10-29] VITALS (7 sets, daily range): BP systolic 93–130; BP diastolic 46–75
[2018-10-29 06:36] LABS: BASOPHILS 0.1 % (0-2); EOSINOPHILS 0 % (0-7); HEMATOCRIT 34.4 % (42.0-54.0); HEMOGLOBIN 11.8 g/dL (13.5-17.5); IMMATURE GRANULOCYTES 0.3 % (0-5); LYMPHOCYTES 9.9 % (15-50); MCH 30.3 pg (26.0-34.0); MCHC 34.3 g/dL (31.0-37.0); MCV 88.2 fL (80.0-100.0); MEAN PLATELET VOLUME 9.6 fL (7.4-10.4); MONOCYTES 6.8 % (2-11); NEUTROPHILS 82.9 % (40-80); PLATELET COUNT 201 10x3/uL (130-400); RDW 14.2 % (11.5-14.5)
[2018-10-29 06:39] LABS: WBC 7.4 10x3/uL (4.8-10.8)
[2018-10-29 07:03] LABS: CALC OSMOLALITY 281 mosm/kg (275-300); CALCIUM 9.1 mg/dL (8.5-10.1); CARBON DIOXIDE 29.2 mmol/L (21.0-32.0); CHLORIDE - SERUM 103 mmol/L (98-107); CREATININE - SERUM 0.9 mg/dL (0.6-1.3); GLUCOSE 113 mg/dL (74-106); MAGNESIUM - SERUM 2.1 mg/dL (1.8-2.4); POTASSIUM - SERUM 3.7 mmol/L (3.5-5.1); SODIUM 140 mmol/L (136-145); eGFR NON AFRICAN AMERICAN 85 mL/min (90-120)
[2018-10-29 07:07] LABS: UREA NITROGEN 17 mg/dL (7-18)
--- NOTE | 2018-10-29 13:00 | NUR ---
PATIENT COUGHING UP A MODERATE ANOUT OF THICK IRVING/WHITE SPUTUM. ABLE TO COUGH HARD WITH ENCOURAGEMENT. SUCTION SET UP IN ROOM. NO COMPLAINTS AT THIS TIME. FAMILY AT BEDSIDE. ENCLOSURE BED OPEN. CALL LIGHT WITHIN REACH.
[2018-10-29 13:45] LABS: APPEARANCE CLEAR (CLEAR); BILIRUBIN NEGATIVE (NEGATIVE); COLOR DK YELLOW (YELLOW); GLUCOSE NEGATIVE (NEGATIVE); KETONE MODERATE mg/dL (NEGATIVE); NITRITE NEGATIVE (NEGATIVE); PROTEIN 1+ mg/dL (NEGATIVE); UROBILINOGEN NORMAL (NORMAL)
[2018-10-29 13:46] LABS: BACTERIA FEW /hpf (NONE SEEN); EPITHELIAL CELLS 0-5 /hpf (0-5); RED CELLS - URINE NONE SEEN /hpf (0-5); WHITE CELLS - URINE 0-5 /hpf (0-5)
--- NOTE | 2018-10-29 13:48 | NUR ---
PATIENT IV STARTED X 1 STICK AT THIS TIME. TOLERATED WITH SMALL AMOUNT OF PAIN. CALL LIGHT WITHIN REACH.
--- NOTE | 2018-10-29 18:25 | MORECARE ---
CASE MANAGEMENT DISCHARGE SUMMARY PATIENT: DON MARQUEZ UNIT: [id number] ADM DATE: 10/25/18 AGE: 83 : 35 SEX: M ROOM/BED: D.2219 AUTHOR: EILEEN,DOC PHYSICIAN: REFERRING PHYSICIAN: RACHID CORDOVA MD DATE OF SERVICE: 10/29/18 Discharge Plan Patient Name: DON MARQUEZ [facility] [facility] 1935 Planned Disposition: Inpatient Rehab Facility Anticipated Discharge Date: 10/28/18 Discharge Date: Expected LOS: 3 Initial Reviewer: [email or web address] Initial Review Date: 10/25/2018 Generated: 10/29/18 7:24 pm Comments DCP- Discharge Planning Updated by [email or web address]: Bernie Logan on 10/29/18 5:[address] LATE ENTRY 1530 HOSPICE CONSULT RECEIVED. FAMILY NOT AT BEDSIDE AT THIS TIME. 1600 TC TO THE PATIENT'S EX , THE CHEMICAL PACKAGER. ADVISED I HAD RECEIVED A HOSPICE CONSULT. CM ASK IF SHE HAD A PREFERENCE. SHE REQUESTED [facility]. CM ADVISED I WOULD CONTACT [facility] AND HAVE THEM ARRANGE A VISIT. TC TO [facility]. SPOKE WITH [facility]. RECEIVED A CALL BACK FROM [facility] REFERRAL PACKET PREPARED. 1800 JAVI ON SITE. PACKET PROVIDED AND REFERRAL DISCUSSED. SHE WILL FOLLOW UP WITH THE . DCP- Discharge Planning Updated by [id number]: Jillian Lovett on 10/28/18 2:[address] I ALSO FAXED DOWN A COPY OF THE PATIENTS CARD TO THE BUSINESS OFFICE AND THEY HAVE UPDATED HIS FACESHEET DCP- Discharge Planning Updated by [id number]: Jillian Lovett on 10/28/18 2:[address] [facility], I SPOKE WITH JFEF. DCP- Discharge Planning Updated by [id number]: Jillian Lovett on 10/28/18 12:[address] Spoke at length with Daughter, she would like a referral to be sent to [facility]. Dr Cordova spoke with family at length about prognosis and plan of care. CM to follow and assist DCP- Discharge Planning Updated by [id number]: Jillian Lovett on 10/27/18 11:[address] spoke with ex today, she was up here visiting him about and a facility. I have given [place] brochures [place] She stated that she is going to talk with their daughter and go visit them and get back with me. CM will continue to follow and assist with dc planning DCP- Discharge Planning Updated by [email or web address]: Jillian Zavalaken on 10/26/18 2:[address] met with ex Jimena and met with patient, Jimena stated that she and her daughter are the POA. The patient is alert but not oriented to anything. He is pleasant but cannot answer any questions appropriately. Psych consult ordered will wait to see his recommendations, CM to follow and assist as needed DCP- Discharge Planning Updated by [email or web address]: Ginamamta Lacy on 10/25/18 12:[address] Patient Name: DON MARQUEZ Admission Status: ER Accout number: [id number] Admission Date: 10-25-2018 : 1935 Admission Diagnosis: Attending: RACHID CORDOVA Current LOS: 1 Anticipated DC Date: 10-28-2018 Planned Disposition: Inpatient Rehab Facility Primary Insurance: [employer] Discharge Planning Comments: DC PLAN: Rehab vs home health. ANTICIPATED DC NEEDS: ROSEANNA signed for [facility] in the ER. CM met with patient and his ex , Jimena Marquez to complete initial dc planning assessment. CM educated them on the CM role and verbal consent given by patient's ex to complete assessment. CM verified patient's address, phone number, and emergency contact phone numbers. Patient lives at home alone. He was found down on the floor for an unknown amount of time. Jimena reports that the patient is very upset he is being admitted. She does not feel he is safe to be home alone. Their daughter Monica Granados will be here next week to assist in his care. Jimena had questions regarding home health and sitter services. Explained both and roseanna signed for [facility]. Jimena is not sure at discharge if the patient will agree to home health or rehab. She feels he will need rehab and is hopeful he will agree to it. She also had questions regarding how to get guardianship (so their daughter could do this when she gets here). Informed her that she would have to go through the courts to get guardianship. Referred her to [employer] for additional information. If the patient refuses services at dc Jimena reports she will transport him home. Cm will make arrangements once plan for the hip fracture is know. Not sure at this time if surgery will be required per ER MD. CM will continue to follow and will assist as needed with dc plans/needs. Otr Van Cdl Truck Driver: Gina Lacy RN, [facility] DCPIA - Discharge Planning Initial Assessment Updated by [email or web address]: Gina Lacy on 10/25/18 1:08 pm * Is the patient Alert and Oriented? Yes * How many steps to enter\exit or inside your home? One * PCP Dr. Arpit Scott * Pharmacy [facility] near [facility] * Preadmission Environment Home Alone * ADLs Partial Dependent * Partial ADLs (Assistance needed) Ambulation Bathing Dressing Transfers * Equipment Cane Rolling Walker * Other Equipment the walker and quad cane is borrowed equipment. * List name and contact numbers for known caregivers / representatives who currently or will assist patient after discharge: Jimena Marquez - ex - [phone] Monica Granados - daughter - * Verbal permission to speak to the caregivers and representatives has been obtained from the patient. Yes * Community resources currently utilized None * Additional services required to return to the preadmission environment? Yes * Can the patient safely return to the preadmission environment? No * Has this patient been hospitalized within the prior 30 days at any hospital? No Coverage Notice Reviewer: [id number] Erica Lovett Notice Issued Date-Time: 10/28/2018 12:00 Notice Type: Patient Choice Letter Notice Delivered To: Family Member Relationship to Patient: Daughter Piano Stringer Name: Delivery Method: HAND - Hand Delivered Liza Days: Prior Verbal Notification: Recipient Understood Notice: Yes Recipient Signature: Yes Med Rec Note Co-signed by Attending: Coverage Notice Comment: ROSEANNA FOR SKILLED Last DP export: 10/28/18 2:44 p Patient Name: DON MARQUEZ Page 22608 at 6475 All edits/amendments must be made on the electronic document DICTATION DATE: 10/29/181823 HEAVY LINE TECHNICIAN: RAHUL 10/29/181823 RPT#: [id number] DC DATE: STATUS: ADM IN [facility] [address] [place] [address] END OF REPORT
--- NOTE | 2018-10-29 18:50 | NUR ---
PATIENT IN BED WITH IV INTACT. NO COMPLAINTS OR SIGNS OF DISTRESS. ENCLOSURE BED OPEN ALL DAY WITH NO PROBLEMS WITH PATIENT. CALL LIGHT WITHIN REACH.
[2018-10-30 00:18] VITALS: BP 108/61
[2018-10-30 03:29] VITALS: BP 111/57
[2018-10-30 06:41] LABS: BASOPHILS 0.2 % (0-2); EOSINOPHILS 0.2 % (0-7); HEMATOCRIT 31.1 % (42.0-54.0); HEMOGLOBIN 10.3 g/dL (13.5-17.5); LYMPHOCYTES 16.1 % (15-50); MCH 29.3 pg (26.0-34.0); MCHC 33.1 g/dL (31.0-37.0); MCV 88.6 fL (80.0-100.0); MEAN PLATELET VOLUME 9.1 fL (7.4-10.4); MONOCYTES 10.5 % (2-11); PLATELET COUNT 192 10x3/uL (130-400); RBC 3.51 10x6/uL (4.20-6.10); RDW 14.4 % (11.5-14.5)
[2018-10-30 06:49] LABS: WBC 4.3 10x3/uL (4.8-10.8)
[2018-10-30 06:57] LABS: CALC OSMOLALITY 286 mosm/kg (275-300); CALCIUM 8.9 mg/dL (8.5-10.1); CARBON DIOXIDE 29.8 mmol/L (21.0-32.0); CHLORIDE - SERUM 106 mmol/L (98-107); CREATININE - SERUM 0.7 mg/dL (0.6-1.3); GLUCOSE 108 mg/dL (74-106); PHOSPHOROUS 2.5 mg/dL (2.5-4.9); POTASSIUM - SERUM 3.8 mmol/L (3.5-5.1); SODIUM 142 mmol/L (136-145); UREA NITROGEN 21 mg/dL (7-18); eGFR NON AFRICAN AMERICAN > 90 mL/min (90-120)
[2018-10-30 08:14] VITALS: BP 124/82
--- NOTE | 2018-10-30 09:03 | NUR ---
PATIENT REMOVED FROM ENCLOSURE BED AT THIS TIME AND BED ALARM PLACED ON PATIENT. PATIENT NO LONGER REQUIRES THE ENCLOSURE BED. IV INTACT. NO COMPLAINTS. CALL LIGHT WITHIN REACH.
--- NOTE | 2018-10-30 15:00 | NUR ---
PATIENT AMBULATED IN NATH WITH WALKER ASSISTED BY PT.
--- NOTE | 2018-10-30 16:29 | NUR ---
PATIENT IN BED WITH IV INTACT. NO COMPLAINTS. REPOSITIONED AND CHANGED SKIN TEAR NOTED ON COCCYX AND AROUND ANAL AREA. BOUDREUXS APPLIED AND TURNED TO RIGHT SIDE. FAMILY AT BEDSIDE. BA ON. CALL LIGHT WITHIN REACH.
[2018-10-30 16:39] VITALS: BP 112/56
--- NOTE | 2018-10-31 03:30 | NUR ---
PT INCONTINENT OF SOFT BM. COMPLETE BED CHANGE. PT ASKING WHEN HE CAN EAT. PROCAL INFUSING. BED ALARM ON. PRODUCTIVE COUGH - PT USING YAUNKER TO SUCTION.
[2018-10-31 06:35] LABS: BASOPHILS 0 % (0-2); EOSINOPHILS 0.4 % (0-7); HEMATOCRIT 34.3 % (42.0-54.0); HEMOGLOBIN 11.1 g/dL (13.5-17.5); IMMATURE GRANULOCYTES 0.2 % (0-5); LYMPHOCYTES 14.6 % (15-50); MCH 29.1 pg (26.0-34.0); MCHC 32.4 g/dL (31.0-37.0); MEAN PLATELET VOLUME 9.6 fL (7.4-10.4); MONOCYTES 10.4 % (2-11); NEUTROPHILS 74.4 % (40-80); PLATELET COUNT 210 10x3/uL (130-400); RBC 3.81 10x6/uL (4.20-6.10); RDW 14.4 % (11.5-14.5); WBC 4.7 10x3/uL (4.8-10.8)
[2018-10-31 07:09] LABS: CALC OSMOLALITY 279 mosm/kg (275-300); CALCIUM 9.2 mg/dL (8.5-10.1); CARBON DIOXIDE 31.1 mmol/L (21.0-32.0); CHLORIDE - SERUM 103 mmol/L (98-107); CREATININE - SERUM 0.7 mg/dL (0.6-1.3); GLUCOSE 92 mg/dL (74-106); MAGNESIUM - SERUM 2.1 mg/dL (1.8-2.4); PHOSPHOROUS 3.1 mg/dL (2.5-4.9); POTASSIUM - SERUM 4.1 mmol/L (3.5-5.1); SODIUM 139 mmol/L (136-145); UREA NITROGEN 19 mg/dL (7-18); eGFR NON AFRICAN AMERICAN > 90 mL/min (90-120)
[2018-10-31 08:49] VITALS: BP 129/66
[2018-10-31 12:44] VITALS: BP 119/56
--- NOTE | 2018-10-31 13:33 | MORECARE ---
CASE MANAGEMENT DISCHARGE SUMMARY PATIENT: DON MARQUEZ UNIT: [id number] ADM DATE: 10/25/18 AGE: 83 : 35 SEX: M ROOM/BED: D.2219 AUTHOR: MAYI ARELLANO PHYSICIAN: REFERRING PHYSICIAN: RACHID CORDOVA MD DATE OF SERVICE: 10/31/18 Discharge Plan Patient Name: DON MARQUEZ [facility] [facility] 1935 Planned Disposition: Inpatient Rehab Facility Anticipated Discharge Date: 10/28/18 Discharge Date: Expected LOS: 3 Initial Reviewer: [id number] Initial Review Date: 10/25/2018 Generated: 10/31/18 2:33 pm Comments DCP- Discharge Planning Updated by [id number]: Jillian Lovett on 10/31/18 12:[address] PATIENT HAS BEEN ACCEPTED AT THE [facility] & ALSO [facility] WHEN HE IS DISCHARGED. I HAVE CALLED BOTH DAUGHTER AND EX- TO VERIFY THAT THIS IS WHAT THEY WANTED, I HAVE LEFT A MESSAGE WITH BOTH OF THEM TO CALL ME BACK. CM TO FOLLOW AND ASSIST WITH DC PLANNING DCP- Discharge Planning Updated by [id number]: Bernie Logan on 10/29/18 5:[address] LATE ENTRY 1530 HOSPICE CONSULT RECEIVED. FAMILY NOT AT BEDSIDE AT THIS TIME. 1600 TC TO THE PATIENT'S EX , THE [employer] PAT[employer]. ADVISED I HAD RECEIVED A HOSPICE CONSULT. CM ASK IF SHE HAD A PREFERENCE. SHE REQUESTED [facility]. CM ADVISED I WOULD CONTACT [facility] AND HAVE THEM ARRANGE A VISIT. TC TO [facility]. SPOKE WITH [facility]. RECEIVED A CALL BACK FROM [facility] REFERRAL PACKET PREPARED. 1800 JAVI ON SITE. PACKET PROVIDED AND REFERRAL DISCUSSED. SHE WILL FOLLOW UP WITH THE . DCP- Discharge Planning Updated by [id number]: Jillian Lovett on 10/28/18 2:[address] I ALSO FAXED DOWN A COPY OF THE PATIENTS CARD TO THE BUSINESS OFFICE AND THEY HAVE UPDATED HIS FACESHEET DCP- Discharge Planning Updated by [email or web address]: Jillian Lovett on 10/28/18 2:[address] [facility], I SPOKE WITH JEFF. DCP- Discharge Planning Updated by [email or web address]: Jillian Lovett on 10/28/18 12:[address] Spoke at length with Daughter, she would like a referral to be sent to [facility]. Dr Cordova spoke with family at length about prognosis and plan of care. CM to follow and assist DCP- Discharge Planning Updated by [id number]: Jillian Lovett on 10/27/18 11:[address] spoke with ex today, she was up here visiting him about and a facility. I have given her brochures and information about the ones in the [facility] and surrounding area's. She stated that she is going to talk with their daughter and go visit them and get back with me. CM will continue to follow and assist with dc planning DCP- Discharge Planning Updated by [id number]: Jillian Lovett on 10/26/18 2:[address] met with ex Jimena and met with patient, Jimena stated that she and her daughter are the POA. The patient is alert but not oriented to anything. He is pleasant but cannot answer any questions appropriately. Psych consult ordered will wait to see his recommendations, CM to follow and assist as needed DCP- Discharge Planning Updated by [id number]: Ginamamta Lacy on 10/25/18 12:[address] Patient Name: DON MARQUEZ Admission Status: ER Accout number: [id number] Admission Date: 10-25-2018 : 1935 Admission Diagnosis: Attending: RACHID CORDOVA Current LOS: 1 Anticipated DC Date: 10-28-2018 Planned Disposition: Inpatient Rehab Facility Primary Insurance: [employer] Discharge Planning Comments: DC PLAN: Rehab vs home health. ANTICIPATED DC NEEDS: ROSEANNA signed for [facility] in the ER. CM met with patient and his ex , Jimena Marquez to complete initial dc planning assessment. CM educated them on the CM role and verbal consent given by patient's ex to complete assessment. CM verified patient's address, phone number, and emergency contact phone numbers. Patient lives at home alone. He was found down on the floor for an unknown amount of time. Jimena reports that the patient is very upset he is being admitted. She does not feel he is safe to be home alone. Their daughter Monica Granados will be here next week to assist in his care. Jimena had questions regarding home health and sitter services. Explained both and roseanna signed for [facility] . Jimena is not sure at discharge if the patient will agree to home health or rehab. She feels he will need rehab and is hopeful he will agree to it. She also had questions regarding how to get guardianship (so their daughter could do this when she gets here). Informed her that she would have to go through the courts to get guardianship. Referred her to [employer] for additional information. If the patient refuses services at dc Jimena reports she will transport him home. Cm will make arrangements once plan for the hip fracture is know. Not sure at this time if surgery will be required per ER MD. CM will continue to follow and will assist as needed with dc plans/needs. Radiology Equipment Servicer: Gina Lacy RN, [facility] DCPIA - Discharge Planning Initial Assessment Updated by [id number]: Gina Lacy on 10/25/18 1:08 pm * Is the patient Alert and Oriented? Yes * How many steps to enter\exit or inside your home? One * PCP Dr. Arpit Scott * Pharmacy [facility] near [facility] * Preadmission Environment Home Alone * ADLs Partial Dependent * Partial ADLs (Assistance needed) Ambulation Bathing Dressing Transfers * Equipment Cane Rolling Walker * Other Equipment the walker and quad cane is borrowed equipment. * List name and contact numbers for known caregivers / representatives who currently or will assist patient after discharge: Jimena Marquez - ex - [phone] Monica Granados - daughter - * Verbal permission to speak to the caregivers and representatives has been obtained from the patient. Yes * Community resources currently utilized None * Additional services required to return to the preadmission environment? Yes * Can the patient safely return to the preadmission environment? No * Has this patient been hospitalized within the prior 30 days at any hospital? No Coverage Notice Reviewer: [id number] - Jillian Lovett Notice Issued Date-Time: 10/28/2018 12:00 Notice Type: Patient Choice Letter Notice Delivered To: Family Member Relationship to Patient: Daughter Human Services Assistant Name: Delivery Method: HAND - Hand Delivered Liza Days: Prior Verbal Notification: Recipient Understood Notice: Yes Recipient Signature: Yes Med Rec Note Co-signed by Attending: Coverage Notice Comment: ROSEANNA FOR SKILLED Last DP export: 10/29/18 5:25 p Patient Name: DON MARQUEZ Page [id number] at 1333 All edits/amendments must be made on the electronic document DICTATION DATE: 10/31/181332 LEISURE STUDIES PROFESSOR: RAHUL 10/31/181332 RPT#: [id number] DC DATE: STATUS: ADM IN [facility] [address] [place] [address] END OF REPORT
--- NOTE | 2018-10-31 13:51 | MORECARE ---
CASE MANAGEMENT DISCHARGE SUMMARY PATIENT: DON MARQUEZ UNIT: [id number] ADM DATE: 10/25/18 AGE: 83 : 35 SEX: M ROOM/BED: D.2219 AUTHOR: EILEENDOC PHYSICIAN: REFERRING PHYSICIAN: RACHID CORDOVA MD DATE OF SERVICE: 10/31/18 Discharge Plan Patient Name: DON MARQUEZ [facility] [facility] 1935 Planned Disposition: Inpatient Rehab Facility Anticipated Discharge Date: 10/28/18 Discharge Date: Expected LOS: 3 Initial Reviewer: [id number] Initial Review Date: 10/25/2018 Generated: 10/31/18 2:50 pm Comments DCP- Discharge Planning Updated by [id number]: Jillian Lovett on 10/31/18 12:[address] Family at hospital stated that they do want [facility]. ROSEANNA signed and IMM served and explained. CM will continue to follow and assist with DC planning DCP- Discharge Planning Updated by [id number]: Jillian Lovett on 10/31/18 12:[address] PATIENT HAS BEEN ACCEPTED AT THE [facility] & [facility] WHEN HE IS DISCHARGED. I HAVE CALLED BOTH DAUGHTER AND EX- TO VERIFY THAT THIS IS WHAT THEY WANTED, I HAVE LEFT A MESSAGE WITH BOTH OF THEM TO CALL ME BACK. CM TO FOLLOW AND ASSIST WITH DC PLANNING DCP- Discharge Planning Updated by [id number]: Bernie Logan on 10/29/18 5:[address] LATE ENTRY 1530 HOSPICE CONSULT RECEIVED. FAMILY NOT AT BEDSIDE AT THIS TIME. 1600 TC TO THE PATIENT'S EX , [employer]. ADVISED I HAD RECEIVED A HOSPICE CONSULT. CM ASK IF SHE HAD A PREFERENCE. SHE REQUESTED [facility]. CM ADVISED I WOULD CONTACT [facility] AND HAVE THEM ARRANGE A VISIT. TC TO [facility]. SPOKE WITH [facility]. RECEIVED A CALL BACK FROM [facility] REFERRAL PACKET PREPARED. 1800 JAVI ON SITE. PACKET PROVIDED AND REFERRAL DISCUSSED. SHE WILL FOLLOW UP WITH THE . DCP- Discharge Planning Updated by [id number]: Jillian Lovett on 10/28/18 2:[address] I ALSO FAXED DOWN A COPY OF THE PATIENTS CARD TO THE BUSINESS OFFICE AND THEY HAVE UPDATED HIS FACESHEET DCP- Discharge Planning Updated by [id number]: Jillian Lovett on 10/28/18 2:[address] [facility], I SPOKE WITH JEFF. DCP- Discharge Planning Updated by [id number]: Jillian Lovett on 10/28/18 12:[address] Spoke at length with Daughter, she would like a referral to be sent to The [facility]. Dr Cordova spoke with family at length about prognosis and plan of care. CM to follow and assist DCP- Discharge Planning Updated by [id number]: Jillian Lovett on 10/27/18 11:[address] spoke with ex today, she was up here visiting him about and a facility. I have given her brochures and information about the ones in the [facility] and surrounding area's. She stated that she is going to talk with their daughter and go visit them and get back with me. CM will continue to follow and assist with dc planning DCP- Discharge Planning Updated by [email or web address]: Jillian Lovett on 10/26/18 2:[address] met with ex Jimena and met with patient, Jimena stated that she and her daughter are the POA. The patient is alert but not oriented to anything. He is pleasant but cannot answer any questions appropriately. Psych consult ordered will wait to see his recommendations, CM to follow and assist as needed DCP- Discharge Planning Updated by [id number]: Gina Regino on 10/25/18 12:[address] Patient Name: DON MARQUEZ Admission Status: ER Accout number: [id number] Admission Date: 10-25-2018 : 1935 Admission Diagnosis: Attending: RACHID CORDOVA Current LOS: 1 Anticipated DC Date: 10-28-2018 Planned Disposition: Inpatient Rehab Facility [facility] Discharge Planning Comments: DC PLAN: Rehab vs home health. ANTICIPATED DC NEEDS: ROSEANNA signed for [facility]. CM met with patient and his ex , Jimena Marquez to complete initial dc planning assessment. CM educated them on the CM role and verbal consent given by patient's ex to complete assessment. CM verified patient's address, phone number, and emergency contact phone numbers. Patient lives at home alone. He was found down on the floor for an unknown amount of time. Jimena reports that the patient is very upset he is being admitted. She does not feel he is safe to be home alone. Their daughter Monica Granados will be here next week to assist in his care. Jimena had questions regarding home health and sitter services. Explained both and roseanna signed for [facility]. Jimena is not sure at discharge if the patient will agree to home health or rehab. She feels he will need rehab and is hopeful he will agree to it. She also had questions regarding how to get guardianship (so their daughter could do this when she gets here). Informed her that she would have to go through the courts to get guardianship. Referred her to [employer] for additional information. If the patient refuses services at dc Jimena reports she will transport him home. Cm will make arrangements once plan for the hip fracture is know. Not sure at this time if surgery will be required per ER MD. CM will continue to follow and will assist as needed with dc plans/needs. Turbine Subassembler: Gina Lacy RN, [facility] DCPIA - Discharge Planning Initial Assessment Updated by [email or web address]: Gina Lacy on 10/25/18 1:08 pm * Is the patient Alert and Oriented? Yes * How many steps to enter\exit or inside your home? One * PCP Dr. Arpit Scott * Pharmacy [facility] near [facility] * Preadmission Environment Home Alone * ADLs Partial Dependent * Partial ADLs (Assistance needed) Ambulation Bathing Dressing Transfers * Equipment Cane Rolling Walker * Other Equipment the walker and quad cane is borrowed equipment. * List name and contact numbers for known caregivers / representatives who currently or will assist patient after discharge: Jimena Marquez - ex - [phone] Monica Granados - daughter - * Verbal permission to speak to the caregivers and representatives has been obtained from the patient. Yes * Community resources currently utilized None * Additional services required to return to the preadmission environment? Yes * Can the patient safely return to the preadmission environment? No * Has this patient been hospitalized within the prior 30 days at any hospital? No Coverage Notice Reviewer: [email or web address] Erica Lovett Notice Issued Date-Time: 10/28/2018 12:00 Notice Type: Patient Choice Letter Notice Delivered To: Family Member Relationship to Patient: Daughter Forge Shop Machine Repairer Name: Delivery Method: HAND - Hand Delivered Liza Days: Prior Verbal Notification: Recipient Understood Notice: Yes Recipient Signature: Yes Med Rec Note Co-signed by Attending: Coverage Notice Comment: ROSEANNA FOR SKILLED Reviewer: [id number] Erica Lovett Notice Issued Date-Time: 10/31/2018 13:35 Notice Type: IM Discharge Notice Notice Delivered To: Family Member Relationship to Patient: Daughter Forge Shop Machine Repairer Name: Delivery Method: HAND - Hand Delivered Liza Days: Prior Verbal Notification: Recipient Understood Notice: Yes Recipient Signature: Yes Med Rec Note Co-signed by Attending: Coverage Notice Comment: Last DP export: 10/31/18 12:33 p Patient Name: DON MARQUEZ Page [id number] at 1351 All edits/amendments must be made on the electronic document DICTATION DATE: 10/31/18 135 EARLY INTERVENTION SPECIALIST: RAHUL 10/31/18 1350 RPT#: [id number] DC DATE: STATUS: ADM IN [facility] [address] [place] [address] END OF REPORT
--- NOTE | 2018-10-31 15:00 | NUR ---
PT PULLED IV OUT,CATH TIP INTACT.
--- NOTE | 2018-10-31 15:04 | NUR ---
Nutrition follow-up: Pt is now NPO due to failed swallow eval ProcalAmine PPN infusing @ 50 ml/hr Labs reviewed Wt: 106# Noted hospice consult Pt is currently not meeting nutritional needs. Will need PEG placed and TF started within 24-[address]N following.
--- NOTE | 2018-10-31 15:38 | NUR ---
OT NOTE: PT REQUIRED CUES SECONDARY TO SOME CONFUSION . PT COMPLETED SUPINE TO SIT WITH MOD A. PT COMPLETED EOB SITTING WITH CGA. PT REQUIRED MIN A FOR SIMPLE FACE WASH. THANK YOU, SAVANNA TAYLOR
--- NOTE | 2018-10-31 15:39 | MORECARE ---
CASE MANAGEMENT DISCHARGE SUMMARY PATIENT: DON MARQUEZ UNIT: [id number] ADM DATE: 10/25/18 AGE: 83 : 35 SEX: M ROOM/BED: D.2219 AUTHOR: EILEEN,DOC PHYSICIAN: REFERRING PHYSICIAN: RACHID CORDOVA MD DATE OF SERVICE: 10/31/18 Discharge Plan Patient Name: DON MARQUEZ [facility] [facility] 1935 Planned Disposition: Inpatient Rehab Facility Anticipated Discharge Date: 10/28/18 Discharge Date: Expected LOS: 3 Initial Reviewer: [id number] Initial Review Date: 10/25/2018 Generated: 10/31/18 4:39 pm Comments DCP- Discharge Planning Updated by [id number]: Jillian Lovett on 10/31/18 2:[address] PATIENT [facility] BE DISCHARGING TO [facility]. I HAVE FAXED CLINICAL TO THEM. CM TO FOLLOW NEEDED DCP- Discharge Planning Updated by [id number]: Jillian Lovett on 10/31/18 12:[address] Family at hospital stated that they [facility] want [facility]. ROSEANNA signed and IMM served and explained. CM will continue to follow and assist with DC planning DCP- Discharge Planning Updated by [id number]: Jillian Lovett on 10/31/18 12:[address] PATIENT HAS BEEN ACCEPTED AT [facility] & ALSO [facility] WHEN HE IS DISCHARGED. I HAVE CALLED BOTH DAUGHTER AND EX- TO VERIFY THAT THIS IS WHAT THEY WANTED, I HAVE LEFT A MESSAGE WITH BOTH OF THEM TO CALL ME BACK. CM TO FOLLOW AND ASSIST WITH DC PLANNING DCP- Discharge Planning Updated by [id number]: Bernie Logan on 10/29/18 5:[address] LATE ENTRY 1530 HOSPICE CONSULT RECEIVED. FAMILY NOT AT BEDSIDE AT THIS TIME. 1600 TC TO THE PATIENT'S EX , THE [employer] SAL[employer]OCIATE. ADVISED I HAD RECEIVED A HOSPICE CONSULT. CM ASK IF SHE HAD A PREFERENCE. SHE REQUESTED [facility]. CM ADVISED I WOULD CONTACT [facility] AND HAVE THEM ARRANGE A VISIT. TC TO [facility]. SPOKE WITH [facility]. RECEIVED A CALL BACK FROM [facility] REFERRAL PACKET PREPARED. 1800 JAVI ON SITE. PACKET PROVIDED AND REFERRAL DISCUSSED. SHE WILL FOLLOW UP WITH THE . DCP- Discharge Planning Updated by [id number]: Jillian Lovett on 10/28/18 2:[address] I ALSO FAXED DOWN A COPY OF THE PATIENTS CARD TO THE BUSINESS OFFICE AND THEY HAVE UPDATED HIS FACESHEET DCP- Discharge Planning Updated by [email or web address]: Jillian Lovett on 10/28/18 2:[address] [facility] IN [facility], I SPOKE WITH JEFF. DCP- Discharge Planning Updated by [email or web address]: Jillian Lovett on 10/28/18 12:[address] Spoke at length with Daughter, she would like a referral to be sent to [facility]. Dr Cordova spoke with family at length about prognosis and plan of care. CM to follow and assist DCP- Discharge Planning Updated by [id number]: Jillian Lovett on 10/27/18 11:[address] spoke with ex today, she was up here visiting him about and a facility. I have given her brochures and information about the ones in the [facility] and surrounding area's. She stated that she is going to talk with their daughter and go visit them and get back with me. CM will continue to follow and assist with dc planning DCP- Discharge Planning Updated by [email or web address]: Jillian Lovett on 10/26/18 2:[address] met with ex Jimena and met with patient, Jimena stated that she and her daughter are the POA. The patient is alert but not oriented to anything. He is pleasant but cannot answer any questions appropriately. Psych consult ordered will wait to see his recommendations, CM to follow and assist as needed DCP- Discharge Planning Updated by [id number]: Gina Lacy on 10/25/18 12:[address] Patient Name: DON MARQUEZ Admission Status: ER Accout number: [id number] Admission Date: 10-25-2018 : 1935 Admission Diagnosis: Attending: RACHID CORDOVA Current LOS: 1 Anticipated DC Date: 10-28-2018 Planned Disposition: Inpatient Rehab Facility [facility] Discharge Planning Comments: DC PLAN: Rehab vs home health. ANTICIPATED DC NEEDS: ROSEANNA signed for [facility] in the ER. CM met with patient and his ex , Jimena Marquez to complete initial dc planning assessment. CM educated them on the CM role and verbal consent given by patient's ex to complete assessment. CM verified patient's address, phone number, and emergency contact phone numbers. Patient lives at home alone. He was found down on the floor for an unknown amount of time. Jimena reports that the patient is very upset he is being admitted. She does not feel he is safe to be home alone. Their daughter Monica Granados will be here next week to assist in his care. Jimena had questions regarding home health and sitter services. Explained both and roseanna signed for [facility]. Jimena is not sure at discharge if the patient will agree to home health or rehab. She feels he will need rehab and is hopeful he will agree to it. She also had questions regarding how to get guardianship (so their daughter could do this when she gets here). Informed her that she would have to go through the courts to get guardianship. Referred her to [employer] for additional information. If the patient refuses services at dc Jimena reports she will transport him home. Cm will make arrangements once plan for the hip fracture is know. Not sure at this time if surgery will be required per ER MD. CM will continue to follow and will assist as needed with dc plans/needs. Gas Flow Regulator: Gina Lacy RN, [facility] DCPIA - Discharge Planning Initial Assessment Updated by [id number]: Gina Lacy on 10/25/18 1:08 pm * Is the patient Alert and Oriented? Yes * How many steps to enter\exit or inside your home? One * PCP Dr. Arpit Scott * Pharmacy [facility] near [facility] * Preadmission Environment Home Alone * ADLs Partial Dependent * Partial ADLs (Assistance needed) Ambulation Bathing Dressing Transfers * Equipment Cane Rolling Walker * Other Equipment the walker and quad cane is borrowed equipment. * List name and contact numbers for known caregivers / representatives who currently or will assist patient after discharge: Jimena Marquez - ex - [phone] Monica Granados - daughter - * Verbal permission to speak to the caregivers and representatives has been obtained from the patient. Yes * Community resources currently utilized None * Additional services required to return to the preadmission environment? Yes * Can the patient safely return to the preadmission environment? No * Has this patient been hospitalized within the prior 30 days at any hospital? No Coverage Notice Reviewer: [id number] Erica Lovett Notice Issued Date-Time: 10/28/2018 12:00 Notice Type: Patient Choice Letter Notice Delivered To: Family Member Relationship to Patient: Daughter Hide And Skin Colerer Name: Delivery Method: HAND - Hand Delivered Liza Days: Prior Verbal Notification: Recipient Understood Notice: Yes Recipient Signature: Yes Med Rec Note Co-signed by Attending: Coverage Notice Comment: ROSEANNA FOR SKILLED Reviewer: [id number] Erica Lovett Notice Issued Date-Time: 10/31/2018 13:35 Notice Type: IM Discharge Notice Notice Delivered To: Family Member Relationship to Patient: Daughter Hide And Skin Colerer Name: Delivery Method: HAND - Hand Delivered Liza Days: Prior Verbal Notification: Recipient Understood Notice: Yes Recipient Signature: Yes Med Rec Note Co-signed by Attending: Coverage Notice Comment: Last DP export: 10/31/18 12:51 p Patient Name: DON MARQUEZ Page [id number] at 1539 All edits/amendments must be made on the electronic document DICTATION DATE: 10/31/18 153 CHIEF SUBSTATION OPERATOR: RAHUL 10/31/18 153 RPT#: [id number] DC DATE: STATUS: ADM IN [facility] [address] [place] [address] END OF REPORT
--- NOTE | 2018-10-31 16:45 | NUR ---
REPORT TO [facility], SPOKE WITH BINA
--- NOTE | 2018-10-31 17:21 | MORECARE ---
CASE MANAGEMENT DISCHARGE SUMMARY PATIENT: DON MARQUEZ UNIT: [id number] ADM DATE: 10/25/18 AGE: 83 : 35 SEX: M ROOM/BED: D.2219 AUTHOR: EILEEN,DOC PHYSICIAN: REFERRING PHYSICIAN: RACHID CORDOVA MD DATE OF SERVICE: 10/31/18 Discharge Plan Patient Name: DON MARQUEZ [facility] [facility] 1935 Planned Disposition: Inpatient Rehab Facility Anticipated Discharge Date: 10/28/18 Discharge Date: Expected LOS: 3 Initial Reviewer: [email or web address] Initial Review Date: 10/25/2018 Generated: 10/31/18 6:21 pm Comments DCP- Discharge Planning Updated by [id number]: Tawnya Boston on 10/31/18 4:[address] Patient Name: DON MARQUEZ Admission Status: ER Accout number: [id number] Admission Date: 10-25-2018 : 1935 Admission Diagnosis:UNSP TROCHANTERIC FRACTURE OF RIGHT FEMUR, INIT FOR ABIMBOLA Attending: RACHID CORDOVA Current LOS: 6 Anticipated DC Date: 10-28-2018 Planned Disposition: Inpatient Rehab Facility Primary Insurance: [employer] Discharge Planning Comments: FAMILY CAME TO THE NURSES DESK UPSET, STATES THEY DON'T KNOW WHAT'S GOING ON AND HASN'T BEEN TOLD ANYTHING. LUCY ASSURED THEM THE AMBULANCE WOULD COME AND TRANSPORT THE PATIENT TO THE [facility]. I TOLD THE FAMILY I WOULD CONTACT [facility] AND CONFIRM EVERYTHING IS SET UP. I SPOKE WITH SANJUANA AND SHE CONFIRMED THIS. I KNOW FOR A FACT EMILIA HAS BEEN WORKING WITH THE FAMILY AND KEEPING THEM ENVOLVED AND UPDATED WITH THE PLAN. CM WENT BACK TO TALK TO FAMILY AFTER VERIFYING INFORMATION BUT THE FAMILY WAS NOT IN THE ROOM. NOTE LEFT WITH THE NURSE FOR THE FAMILY. CM TO FOLLOW AND ASSIST. Circus Roustabout: Tawnya Bostno DCP- Discharge Planning Updated by [email or web address]: Jillian Lovett on 10/31/18 2:[address] PATIENT WILL BE DISCHARGING TO THE [facility] ON HOSPICE WITH [facility] TO THE [facility]. I HAVE FAXED CLINICAL TO THEM. CM TO FOLLOW NEEDED DCP- Discharge Planning Updated by [id number]: Jillian Lovett on 10/31/18 12:[address] Family at hospital stated that they do want The [facility] with [facility]. ROSEANNA signed and IMM served and explained. CM will continue to follow and assist with DC planning DCP- Discharge Planning Updated by [id number]: Jillian Lovett on 10/31/18 12:[address] PATIENT HAS BEEN ACCEPTED AT THE [facility] & [facility] WHEN HE IS DISCHARGED. I HAVE CALLED BOTH DAUGHTER AND EX- TO VERIFY THAT THIS IS WHAT THEY WANTED, I HAVE LEFT A MESSAGE WITH BOTH OF THEM TO CALL ME BACK. CM TO FOLLOW AND ASSIST WITH DC PLANNING DCP- Discharge Planning Updated by [id number]: Bernie Richards on 10/29/18 5:[address] LATE ENTRY 1530 HOSPICE CONSULT RECEIVED. FAMILY NOT AT BEDSIDE AT THIS TIME. 1600 TC TO THE PATIENT'S EX , THE CASE INVESTIGATOR. ADVISED I HAD RECEIVED A HOSPICE CONSULT. CM ASK IF SHE HAD A PREFERENCE. SHE REQUESTED [facility]. CM ADVISED I WOULD CONTACT [facility] AND HAVE THEM ARRANGE A VISIT. TC TO [facility]. SPOKE WITH [facility]. RECEIVED A CALL BACK FROM LISETH [facility] REFERRAL PACKET PREPARED. 1800 JAVI ON SITE. PACKET PROVIDED AND REFERRAL DISCUSSED. SHE WILL FOLLOW UP WITH THE . DCP- Discharge Planning Updated by [id number]: Jillian Lovett on 10/28/18 2:[address] I ALSO FAXED DOWN A COPY OF THE PATIENTS CARD TO THE BUSINESS OFFICE AND THEY HAVE UPDATED HIS FACESHEET DCP- Discharge Planning Updated by [id number]: Jillian Lovett on 10/28/18 2:[address] [facility], I SPOKE WITH JEFF. DCP- Discharge Planning Updated by [id number]: Jillian Lovett on 10/28/18 12:[address] Spoke at length with Daughter, she would like a referral to be sent to The [facility] and [facility]. Dr Cordova spoke with family at length about prognosis and plan of care. CM to follow and assist DCP- Discharge Planning Updated by [id number]: Jillian Lovett on 10/27/18 11:[address] spoke with ex today, she was up here visiting him about and a facility. I [place]. She stated that she is going to talk with their daughter and go visit them and get back with me. CM will continue to follow and assist with dc planning DCP- Discharge Planning Updated by [email or web address]: Jillian Lovett on 10/26/18 2:[address] met with ex Jimena and met with patient, Jimena stated that she and her daughter are the POA. The patient is alert but not oriented to anything. He is pleasant but cannot answer any questions appropriately. Psych consult ordered will wait to see his recommendations, CM to follow and assist as needed DCP- Discharge Planning Updated by [id number]: Ginamamta Lacy on 10/25/18 12:[address] Patient Name: DON MARQUEZ Admission Status: ER Accout number: [id number] Admission Date: 10-25-2018 : 1935 Admission Diagnosis: Attending: RACHID CORDOVA Current LOS: 1 Anticipated DC Date: 10-28-2018 Planned Disposition: Inpatient Rehab Facility Primary Insurance: [employer] Discharge Planning Comments: DC PLAN: Rehab vs home health. ANTICIPATED DC NEEDS: ROSEANNA signed for [facility] in the ER. CM met with patient and his ex , Jimena Marquez to complete initial dc planning assessment. CM educated them on the CM role and verbal consent given by patient's ex to complete assessment. CM verified patient's address, phone number, and emergency contact phone numbers. Patient lives at home alone. He was found down on the floor for an unknown amount of time. Jimena reports that the patient is very upset he is being admitted. She does not feel he is safe to be home alone. Their daughter Monica Granados will be here next week to assist in his care. Jimena had questions regarding home health and sitter services. Explained both and roseanna signed for [facility]. Jimena is not sure at discharge if the patient will agree to home health or rehab. She feels he will need rehab and is hopeful he will agree to it. She also had questions regarding how to get guardianship (so their daughter could do this when she gets here). Informed her that she would have to go through the courts to get guardianship. Referred her to [employer] for additional information. If the patient refuses services at dc Jimena reports she will transport him home. Cm will make arrangements once plan for the hip fracture is know. Not sure at this time if surgery will be required per ER MD. CM will continue to follow and will assist as needed with dc plans/needs. Circus Roustabout: Gina Lacy RN, [facility] DCPIA - Discharge Planning Initial Assessment Updated by [id number]: Gina Lacy on 10/25/18 1:08 pm * Is the patient Alert and Oriented? Yes * How many steps to enter\exit or inside your home? One * PCP Dr. Arpit Scott * Pharmacy [facility] * Preadmission Environment Home Alone * ADLs Partial Dependent * Partial ADLs (Assistance needed) Ambulation Bathing Dressing Transfers * Equipment Cane Rolling Walker * Other Equipment the walker and quad cane is borrowed equipment. * List name and contact numbers for known caregivers / representatives who currently or will assist patient after discharge: Jimena Marquez - ex - [phone] Monica Granados - daughter - * Verbal permission to speak to the caregivers and representatives has been obtained from the patient. Yes * Community resources currently utilized None * Additional services required to return to the preadmission environment? Yes * Can the patient safely return to the preadmission environment? No * Has this patient been hospitalized within the prior 30 days at any hospital? No Coverage Notice Reviewer: [id number] Erica Lovett Notice Issued Date-Time: 10/28/2018 12:00 Notice Type: Patient Choice Letter Notice Delivered To: Family Member Relationship to Patient: Daughter Station Agent Name: Delivery Method: HAND - Hand Delivered Liza Days: Prior Verbal Notification: Recipient Understood Notice: Yes Recipient Signature: Yes Med Rec Note Co-signed by Attending: Coverage Notice Comment: ROSEANNA FOR SKILLED Reviewer: [id number] Lovett Notice Issued Date-Time: 10/31/2018 13:35 Notice Type: IM Discharge Notice Notice Delivered To: Family Member Relationship to Patient: Daughter Station Agent Name: Delivery Method: HAND - Hand Delivered Liza Days: Prior Verbal Notification: Recipient Understood Notice: Yes Recipient Signature: Yes Med Rec Note Co-signed by Attending: Coverage Notice Comment: Last DP export: 10/31/18 2:39 p Patient Name: DON MARQUEZ Page [id number] at 1721 All edits/amendments must be made on the electronic document DICTATION DATE: 10/31/181720 WASTE CHOPPER: RAHUL 10/31/181720 RPT#: [id number] DC DATE: STATUS: ADM IN [facility] [address] [place] [address] END OF REPORT
--- NOTE | 2018-10-31 20:05 | NUR ---
[facility] HERE DISCHARGED TO [facility].
--- NOTE | 2018-11-02 09:52 | MORECARE ---
CASE MANAGEMENT DISCHARGE SUMMARY PATIENT: DON MARQUEZ UNIT: [id number] ADM DATE: 10/25/18 AGE: 83 : 35 SEX: M ROOM/BED: D.2219 AUTHOR: EILEENDOC PHYSICIAN: REFERRING PHYSICIAN: RACHID CORDOVA MD DATE OF SERVICE: 11/02/18 Discharge Plan Patient Name: DON MARQUEZ [facility] [facility] 1935 Planned Disposition: Inpatient Rehab Facility Anticipated Discharge Date: 10/28/18 Discharge Date: 10/31/2018 Expected LOS: 3 Initial Reviewer: [email or web address] Initial Review Date: 10/25/2018 Generated: 11/02/18 10:52 am Comments DCP- Discharge Planning Updated by [id number]: Tawnya Boston on 10/31/18 4:[address] Patient Name: DON MARQUEZ Admission Status: ER Accout number: [id number] Admission Date: 10-25-2018 : 1935 Admission Diagnosis:UNSP TROCHANTERIC FRACTURE OF RIGHT FEMUR, INIT FOR ABIMBOLA Attending: RACHID CORDOVA Current LOS: 6 Anticipated DC Date: 10-28-2018 Planned Disposition: Inpatient Rehab Facility Primary Insurance: [employer] Discharge Planning Comments: FAMILY CAME TO THE NURSES DESK UPSET, STATES THEY DON'T KNOW WHAT'S GOING ON AND HASN'T BEEN TOLD ANYTHING. LUCY ASSURED THEM THE AMBULANCE WOULD COME AND TRANSPORT THE PATIENT TO THE [facility]. I TOLD THE FAMILY I WOULD CONTACT [facility] AND CONFIRM EVERYTHING IS SET UP. I SPOKE WITH SANJUANA AND SHE CONFIRMED THIS. I KNOW FOR A FACT EMILIA HAS BEEN WORKING WITH THE FAMILY AND KEEPING THEM ENVOLVED AND UPDATED WITH THE PLAN. CM WENT BACK TO TALK TO FAMILY AFTER VERIFYING INFORMATION BUT THE FAMILY WAS NOT IN THE ROOM. NOTE LEFT WITH THE NURSE FOR THE FAMILY. CM TO FOLLOW AND ASSIST. Supervisor Dry Paste: Tawnya Boston DCP- Discharge Planning Updated by [id number]: Jillian Lovett on 10/31/18 2:[address] PATIENT WILL BE DISCHARGING TO THE [facility] ON HOSPICE WITH [facility] TO THE [facility]. I HAVE FAXED CLINICAL TO THEM. CM TO FOLLOW NEEDED DCP- Discharge Planning Updated by [id number]: Jillian Lovett on 10/31/18 12:[address] Family at hospital stated that they do want [facility] with [facility]. ROSEANNA signed and IMM served and explained. CM will continue to follow and assist with DC planning DCP- Discharge Planning Updated by [id number]: Jillian Lovett on 10/31/18 12:[address] PATIENT HAS BEEN ACCEPTED AT THE [facility] & [facility] WHEN HE IS DISCHARGED. I HAVE CALLED BOTH DAUGHTER AND EX- TO VERIFY THAT THIS IS WHAT THEY WANTED, I HAVE LEFT A MESSAGE WITH BOTH OF THEM TO CALL ME BACK. CM TO FOLLOW AND ASSIST WITH DC PLANNING DCP- Discharge Planning Updated by [id number]: Bernie Doreen on 10/29/18 5:[address] LATE ENTRY 1530 HOSPICE CONSULT RECEIVED. FAMILY NOT AT BEDSIDE AT THIS TIME. 1600 TC TO THE PATIENT'S EX , THE BAG MACHINE HELPER. ADVISED I HAD RECEIVED A HOSPICE CONSULT. CM ASK IF SHE HAD A PREFERENCE. SHE REQUESTED [facility]. CM ADVISED I WOULD CONTACT [facility] AND HAVE THEM ARRANGE A VISIT. TC TO [facility]. SPOKE WITH [facility]. RECEIVED A CALL BACK FROM L[facility]ETH [facility] REFERRAL PACKET PREPARED. 1800 JAVI ON SITE. PACKET PROVIDED AND REFERRAL DISCUSSED. SHE WILL FOLLOW UP WITH THE . DCP- Discharge Planning Updated by [id number]: Jillian Lovett on 10/28/18 2:[address] I ALSO FAXED DOWN A COPY OF THE PATIENTS CARD TO THE BUSINESS OFFICE AND THEY HAVE UPDATED HIS FACESHEET DCP- Discharge Planning Updated by [id number]: Jillian Lovett on 10/28/18 2:[address] [facility], I SPOKE WITH JEFF. DCP- Discharge Planning Updated by [email or web address]: Jillian Lovett on 10/28/18 12:[address] Spoke at length with Daughter, she would like a referral to be sent to [facility] and [facility]. Dr Cordova spoke with family at length about prognosis and plan of care. CM to follow and assist DCP- Discharge Planning Updated by [id number]: Jillian Lovett on 10/27/18 11:[address] spoke with ex today, she was up here visiting him about and a facility. I have given [place] brochures [place] She stated that she is going to talk with their daughter and go visit them and get back with me. CM will continue to follow and assist with dc planning DCP- Discharge Planning Updated by [id number]: Jillian Lovett on 10/26/18 2:[address] met with ex Jimena and met with patient, Jimena stated that she and her daughter are the POA. The patient is alert but not oriented to anything. He is pleasant but cannot answer any questions appropriately. Psych consult ordered will wait to see his recommendations, CM to follow and assist as needed DCP- Discharge Planning Updated by [email or web address]: Gina Regino on 10/25/18 12:[address] Patient Name: DON MARQUEZ Admission Status: ER Accout number: [id number] Admission Date: 10-25-2018 : 1935 Admission Diagnosis: Attending: RACHID CORDOVA Current LOS: 1 Anticipated DC Date: 10-28-2018 Planned Disposition: Inpatient Rehab Facility Primary Insurance: [employer] Discharge Planning Comments: DC PLAN: Rehab vs home health. ANTICIPATED DC NEEDS: ROSEANNA signed for [facility] in the ER. CM met with patient and his ex , Jimena Marquez to complete initial dc planning assessment. CM educated them on the CM role and verbal consent given by patient's ex to complete assessment. CM verified patient's address, phone number, and emergency contact phone numbers. Patient lives at home alone. He was found down on the floor for an unknown amount of time. Jimena reports that the patient is very upset he is being admitted. She does not feel he is safe to be home alone. Their daughter Monica Granados will be here next week to assist in his care. Jimena had questions regarding home health and sitter services. Explained both and roseanna signed for [facility]. Jimena is not sure at discharge if the patient will agree to home health or rehab. She feels he will need rehab and is hopeful he will agree to it. She also had questions regarding how to get guardianship (so their daughter could do this when she gets here). Informed her that she would have to go through the courts to get guardianship. Referred her to [employer] for additional information. If the patient refuses services at dc Jimena reports she will transport him home. Cm will make arrangements once plan for the hip fracture is know. Not sure at this time if surgery will be required per ER MD. CM will continue to follow and will assist as needed with dc plans/needs. Supervisor Dry Paste: Gina Lacy RN, [facility] DCPIA - Discharge Planning Initial Assessment Updated by [email or web address]: Gina Lacy on 10/25/18 1:08 pm * Is the patient Alert and Oriented? Yes * How many steps to enter\exit or inside your home? One * PCP Dr. Arpit Scott * Pharmacy [facility] near [facility] * Preadmission Environment Home Alone * ADLs Partial Dependent * Partial ADLs (Assistance needed) Ambulation Bathing Dressing Transfers * Equipment Cane Rolling Walker * Other Equipment the walker and quad cane is borrowed equipment. * List name and contact numbers for known caregivers / representatives who currently or will assist patient after discharge: Jimena Marquez - ex - [phone] Monica Granados - daughter - * Verbal permission to speak to the caregivers and representatives has been obtained from the patient. Yes * Community resources currently utilized None * Additional services required to return to the preadmission environment? Yes * Can the patient safely return to the preadmission environment? No * Has this patient been hospitalized within the prior 30 days at any hospital? No Coverage Notice Reviewer: [id number] Erica Lovett Notice Issued Date-Time: 10/28/2018 12:00 Notice Type: Patient Choice Letter Notice Delivered To: Family Member Relationship to Patient: Daughter Tunneling Machine Operator Name: Delivery Method: HAND - Hand Delivered Liza Days: Prior Verbal Notification: Recipient Understood Notice: Yes Recipient Signature: Yes Med Rec Note Co-signed by Attending: Coverage Notice Comment: ROSEANNA FOR SKILLED Reviewer: [id number] Erica Lovett Notice Issued Date-Time: 10/31/2018 13:35 Notice Type: IM Discharge Notice Notice Delivered To: Family Member Relationship to Patient: Daughter Tunneling Machine Operator Name: Delivery Method: HAND - Hand Delivered Liza Days: Prior Verbal Notification: Recipient Understood Notice: Yes Recipient Signature: Yes Med Rec Note Co-signed by Attending: Coverage Notice Comment: Last DP export: 10/31/18 4:21 p Patient Name: DON MARQUEZ Page [id number] at 0952 All edits/amendments must be made on the electronic document DICTATION DATE: 11/02/18951 SUPERVISOR SOUND TECHNICIAN: RAHUL 11/02/18951 RPT#: [id number] DC DATE:10/31/18 STATUS: DIS IN [facility] [address] [place] [address] END OF REPORT
== END 2018-10-31 20:07 | disposition home health service (06) | DRG 535 ==
LOC: D.ER 09:23 → D.MS 11:54
PROVIDERS: Family Medicine; ADMIT Internal Medicine Nephrology; ATTEND Internal Medicine Nephrology
DX: S72.101A Unspecified trochanteric fracture of right femur, initial encounter for closed fracture (principal); E43 Unspecified severe protein-calorie malnutrition; R53.2 Functional quadriplegia; J69.0 Pneumonitis due to inhalation of food and vomit; Z68.1 Body mass index [BMI] 19.9 or less, adult; W19.XXXA Unspecified fall, initial encounter; Y92.009 Unspecified place in unspecified non-institutional (private) residence as the place of occurrence of the external cause; D64.9 Anemia, unspecified; G20 Parkinson's disease; F02.80 Dementia in other diseases classified elsewhere, unspecified severity, without behavioral disturbance, psychotic disturbance, mood disturbance, and anxiety; R40.2132 Coma scale, eyes open, to sound, at arrival to emergency department; R40.2352 Coma scale, best motor response, localizes pain, at arrival to emergency department; R40.2242 Coma scale, best verbal response, confused conversation, at arrival to emergency department